=== PATIENT | female | born 1990 | race Caucasian/White ===

== ENCOUNTER 2021-11-04 18:26 | Outpatient (REF) | payer OTHER, SELFPAY ==
[2021-11-04 13:39] LABS: Abs Immature Grans 0.03 10^3/uL (0.0-0.06); Absolute Basophil Count 0.05 10^3/uL (0.0-0.2); Absolute Eosinophil Count 0.17 10^3/uL (0.0-0.7); Absolute Lymphocyte Count 1.72 10^3/uL (1.2-3.4); Absolute Monocyte Count 0.48 10^3/uL (0.1-0.8); Absolute Neutrophil Count 3.84 10^3/uL (1.2-6.7); Basophils % 0.8; Eosinophils % 2.7; HCT 42.7 % (36.0-46.0); HGB 13.9 g/dL (11.2-15.7); Immature Grans % 0.5; Lymphocytes % 27.3; MCH 29.2 pg (27.0-33.0); MCHC 32.6 % (32.0-36.0); MCV 89.7 fL (80-95); Monocytes % 7.6; Neutrophils % 61.1; Nucleated RBC 0 %; Platelet Count 306 10^3/uL (130-400); RBC 4.76 10^6/uL (3.93-5.22); RDW 12.8 % (11.7-14.6); RDW-SD 42.5 fL; WBC 6.29 10^3/uL (4.4-10.8)
[2021-11-04 14:02] LABS: ALT 28 U/L (14-59); AST 18 U/L (15-37); Albumin 4.5 g/dL (3.4-5.0); Alkaline Phosphatase 69 U/L (46-116); Anion Gap 9.8 mmol/L (3-11); BUN 15 mg/dL (7-18); Bilirubin, Total 1.7 mg/dL (0.2-1.0); CO2 28.2 mmol/L (21.0-32.0); CREATININE 0.8 mg/dL (0.55-1.02); Calcium 9.6 mg/dL (8.5-10.1); Chloride 104 mmol/L (98-107); Glucose 96 mg/dL (74-106); Potassium 3.7 mmol/L (3.5-5.1); Sodium 142 mmol/L (136-145); TSH 0.91 uIU/mL (0.36-3.74); Total Protein 8.1 g/dL (6.4-8.2)
== END 2021-11-04 18:27 | disposition home or self-care (01) ==
LOC: LBN 18:26
PROVIDERS: PCP Student in an Organized Health Care Education/Training Program; Visit Provider Surgery
DX: R11.2 Nausea with vomiting, unspecified (principal); Z80.0 Family history of malignant neoplasm of digestive organs; Z86.79 Personal history of other diseases of the circulatory system; Z98.890 Other specified postprocedural states
CPT/HCPCS: 80053; 84443; 85025

== ENCOUNTER 2021-11-18 03:55 | Outpatient (CLI) | payer OTHER, SELFPAY ==
[2021-11-18 12:33] LABS: Bilirubin, Direct 0.3 mg/dL (0.0-0.2); LDH 162 U/L (81-234)
[2021-11-18 22:31] LABS: Estradiol 183 pg/mL (See Note); Progesterone 7.8 ng/mL (See Table)
[2021-11-18 22:44] LABS: Prolactin 8.8 ng/mL (See Table)
[2021-11-18 22:46] LABS: FSH 3.1 mIU/mL (See Note)
[2021-11-19 10:16] LABS: Haptoglobin 54 mg/dL (32-197)
[2021-11-19 14:53] LABS: Antimullerian Hormone 12 ng/mL (0.58-8.1)
== END 2021-11-18 03:56 | disposition home or self-care (01) ==
LOC: LBO 03:55
PROVIDERS: Obstetrics & Gynecology; PCP Student in an Organized Health Care Education/Training Program; Visit Provider Surgery
DX: N97.9 Female infertility, unspecified (principal); N92.6 Irregular menstruation, unspecified; R17 Unspecified jaundice
CPT/HCPCS: 36415; 82248; 82670; 83001; 83010; 83520; 83615; 84144; 84146

== ENCOUNTER 2021-12-03 00:52 | Outpatient (CLI) | payer OTHER, SELFPAY ==
[2021-12-03] MEDS: Omnipaque 350 MG/ML 50 ML BTL 30 ML IJ (11:14)
--- NOTE | 2021-12-03 11:14 | DI.RAD_ITS ---
Exam(s) RF HYSTEROSALPINGOGRAM EXAM: RF HYSTEROSALPINGOGRAM CLINICAL HISTORY: infertility,N97.9 TECHNIQUE: 2D and realtime digital imaging was performed. CONTRAST MATERIAL: Water soluble contrast was administered. COMPARISON: No exams were available for comparison FINDINGS: Fluoroscopically-guided hysterosalpingogram. The cervical opening was cannulated by Dr. Weber. Reanna chris under fluoroscopic guidance, water-soluble contrast was injected in a retrograde fashion. The uterus fills normally, with no evidence of contour abnormality, filling defect, septum, stricture , mass, or bicornuate configuration. The left fallopian tube fills normal with spillage of contrast i nto the peritoneum. There is poor filling of the right fallopian tube. No spillage of contrast into the peritoneum is seen from the right tube. IMPRESSION: Poor filling of the right fallopian tube with no evidence of spillage of contrast into the peritoneum . RADIATION DOSE DELIVERED: donavan Martinez=4.14 mGy
--- NOTE | 2021-12-03 13:19 | W.PROCNOTE ---
Date of service: 12/03/21 Procedure Note Date of procedure: 12/03/21 Procedure: Hysterosalpingogram Surgeon/Proceduralist/Physician: Imelda Weber Procedure Diagnosis: Female Infertility Procedure Indications: Infertility. Normal bloodwork, 's semenanylsis pending. Sono scheduled in 2 wks. Procedure Description: The patient arrived to diagnostic imaging for HSG for infertility. She had a negative test at home. The procedure was explained and consent was signed. She was positioned in the dorsal lithotomy position on the table. A time out was performed. The speculum was placed in the vagina to expose the cervix. The cervix was clensed with betadyne. The anterior lip of the cervix was grasped with a single tooth tenaculum. The catheter was inserted through the cervix into the uterine cavity. The balloon was inflated. The speculum was then removed. When the radiologist was present the patient was repositioned. The contrast was then injected while the radiologist performed fluroscopy. The balloon was then deflated and the catheter was removed. The uterine cavity appeared normal and both tubes appeared patent with positive spill noted on the left side but was delayed. No spill noted on the right side s/p 30ml of contrast.
== END 2021-12-03 01:12 ==
PROVIDERS: PCP Student in an Organized Health Care Education/Training Program; Visit Provider Obstetrics & Gynecology
DX: N97.9 Female infertility, unspecified (principal)
CPT/HCPCS: 58340; 74740; Q9967

== ENCOUNTER 2021-12-08 17:16 | Outpatient (REF) | payer OTHER, SELFPAY ==
[2021-12-08 17:43] LABS: Source Nasal/Nares
[2021-12-09 00:27] LABS: COVID-19 PCR Negative (Negative)
== END 2021-12-08 17:17 | disposition home or self-care (01) ==
LOC: LBN 17:16
PROVIDERS: PCP Student in an Organized Health Care Education/Training Program; Visit Provider Surgery
DX: Z20.822 Contact with and (suspected) exposure to COVID-19 (principal); Z01.818 Encounter for other preprocedural examination
CPT/HCPCS: 87635

== ENCOUNTER 2021-12-10 07:10 | Day surgery (SDC) | payer OTHER, SELFPAY ==
--- NOTE | 2021-12-09 09:20 | W.PM.HP.N ---
Assessment and Plan Assessment and plan (1) Total bilirubin, elevated: Status: Acute Assessment and plan: Pilar (2) PONV (postoperative nausea and vomiting): Status: Acute (3) Family history of colon cancer requiring screening colonoscopy: Status: Acute Assessment and plan: Informed consent is obtained for the procedural (explained in simple layman's terms that?the pt and/or family could understand) explaining risks vs benefits and alternatives to the procedure and consequences if we do not do the procedure and need/rational for the procedure. Risks include but are not limited to: bleeding, infection, perforation of colon.? This would necessitate emergency surgery to repair the damage w/ possible ostomy; and other associated complications w/ the required surgery. ? Also complications of anesthesia including aspiration, NE/CVA/. ? ?I discussed with the?patient would they could expect during the procedure, post procedure and recovery time and risks.? The patient understands that they need to have a ride home after (4) Colon cancer screening: Status: Acute History of Present Illness History of Present Illness Chief Complaint: The pt. Presents today for consult of/follow up of acute wound /chronic wou Narrative: The pt. Presents today for consult of/follow up of acute wound /chronic wound care. The pt.?has been having no nausea or vomiting; no chest pain, shortness of breath or productive cough. ? Patient has been urinating without any difficulties and moving bowel w/ no straining or bleeding. No problems with diarrhea (continues to eat yogurt daily if on abx).? No fever/chills/sweats.?? Patient has no calf pain swelling, tenderness, or redness.? Patient has been sleeping at night with no problems.? Patient has been ambulating without difficulty.? Patient has been able to tolerate a regular diet.? Patient has had good relief with previously prescribed pain meds.? The pt motor/sensory/vascular status is intact without any signs of acute or chronic ischemia. GPA younger sibs all started screening early- all had polyps routinely on scopes.? he had 5 sibleings.? One in 20's to accident.? all 4 siblings have had polyp His father had CRC- age 70. had s/s before finding cancer.? Had anemia.? First scope at age 46 and had stage 4 cancer.? mother and sister both routinely have polyps.? ?MMA- breat CA in 50'2.? -no changes in bowels. -cyclic vomting as child. no blood.? no sstonstipation/dairrhea.? PSHX hernia as wisdom teeth geta- for dental extractions age 11 PONV runs marathon and will have low hr and htn ? Patient is here today for colonoscopy. I did review her lab results with her today and they are consistent with Ibrahima's She completed the prep in the resulting effluent is a clear yellow. She is not having any chest pain or shortness of breath or chest pressure. She is currently not having any abdominal pain or nausea. She has cough or fevers. She has had no changes in her medications or health status since I saw her in the office last. Review of Systems All systems reviewed & are unremarkable except as noted in HPI and below PFSH All Active Problems Female infertility (Acute) Total bilirubin, elevated (Acute) PONV (postoperative nausea and vomiting) (Acute) Family history of colon cancer requiring screening colonoscopy (Acute) MGP Dg age 45 Mother has A. polyp Colon cancer screening (Acute) Vitamin D deficiency (Acute) Anxiety (Chronic) Celexa helps. Family and personal Hx anx/depression. Managed with good insight and strong support from . Medical History Eating disorder Family history of colon cancer Maternal grandfather Dx @ 43yo, Stg 4! Mo with polyps in 30's. Recommending screening @ 30yo with 5-10 yr recall, [ ] TBD. Family history of infertility History of hypotension Low, but stable, BP. Lightheaded in summer .. Monitors hydration, occasional inc salt intake. Pedialyte helps. History of snoring Long Hx, with enlarged turbinates, sinus congestion .. Hx ENT (-). No sign of apnea; good sleep. 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 Hx LOC. Hx of tendinitis Knee, managed with self-care/home gym/exercise routine. PT PRN. Intermittent vomiting Hx cyclical vomiting as a child; nausea/migraines as teen.. Possible episodic n/v 2' fatigue, stress, hormonal changes (?) Migraine with aura and without status migrainosus, not intractable Managed with Ibuprofen .. (6-8 hr episodes) Seasonal allergies Long Hx, with enlrged turb and sinus congestion.. Antihistamines PRN. Vaso-vagal reaction Hx vaso-vagal rxn (immuniz, IV needles) .. possible assoc with N/V/GI issues (?) Surgical History H/O hernia repair (~02/1992) History of local excision of skin lesion Benign, [place] [place] Family History Maternal Grandfather Substance use disorder opioids, dcsd Colon cancer Mother Anxiety Depression Hypertension Obesity Colon polyps age 30 Sister Anxiety Depression Brother Asthma Paternal Aunt Breast cancer Maternal Grandmother Breast cancer Paternal Grandmother Cancer hodgkin lymphoma Paternal Grandfather Prostate cancer Depression Father Depression Psoriasis Social History Smoking/Tobacco Use Status: Never Smoking risk assessment performed?: Yes Alcohol Intake: current Alcohol Intake frequency: a few times a month Alcohol type: beer Drug use: Never Substance use type: does not use Adopted: No Caregiver/Support person: No Foster care: No Household members: spouse Housing: house Number of Children: 0 number of grandchildren: 0 Communication Needs: None Education Level: other Details: MD Do you need help understanding health information?: Never 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 Pets and animals: Yes (2) Pets and animals: cat(s) Sexually active: Yes Do you think of yourself as: straight/heterosexual Current gender identity: female What is your relationship status?: How often do you talk on the phone with friends or family?: three or more times per week How often do you get together with friends or relatives?: twice per week Do you belong to any clubs or organized social groups?: no Panel score (0-1 are the most socially isolated patients): 2 What type of physical activity do you participate in: weight lifting, other Details: skiing and running Duration: 30-45 minutes/day Frequency: 5-6 times per week Zulema/Mandaeism: None Special zulema needs: No Seatbelt use: always Helmet use: Yes Helmet use: always Drive intox or ride w/intox courier delivery driver: No Do you feel safe at home: Yes Do you feel safe in your relationship?: Yes Female Reproductive History Menstrual Age of Menarche: 12 Duration of menses: 6-7 days control method: none History History 0 Para Hx # Term Pregnancies Multiple births Hx # Pregnancies Ectopic pregnancies AB induced Hx Number of Living Children AB spontaneous Meds Allergies and Home Medications Allergies Allergy/AdvReac Type Severity Reaction Status Date / Time No Known Allergies Allergy Verified 12/10/21 07:34 Home Medications Medication Instructions Recorded Confirmed Type loratadine 10 mg tablet (Claritin) 10 mg PO HS 06/07/21 12/10/21 History cholecalciferol (vitamin D3) 50 50 mcg PO HS 07/01/21 12/10/21 History mcg (2,000 unit) capsule multivitamin 1 tab PO HS 07/01/21 12/10/21 History triamcinolone acetonide 55 mcg 1 spray INTRANASAL HS 07/01/21 12/10/21 History nasal spray aerosol (Nasacort) citalopram 20 mg tablet (Celexa) 20 mg PO HS 12/09/21 12/10/21 History hydroxyzine HCl 25 mg tablet 25 mg PO QID PRN 12/10/21 12/10/21 History Exam Narrative Exam Narrative: PHYSICAL EXAM GENERAL APPEARANCE: Alert, healthy appearance, oriented, in no acute distress SKIN: No rashes.? No breakdown HYDRATION: Well hydrated HEAD, EYES, EARS, NECK, THROAT: Head is normocephalic, pupils equal, round, reactive to light and accommodation, ocular movement intact, sclera clear and no jaundice. ?Dentition intact. No sore throat.? No jaw pain. NECK: Supple, Trachea midline. No JVD. LUNGS: normal respiration/nl chest excursion. ?Clear to auscultation B/l no R/R/W ?HEART: Regular rate and rhythm, EXTREMITY: No edema or cyanosis? no leg pain, redness, swelling.? ABDOMEN: non tender to palpation, no masses or distention, no hernias. Normal bowel sounds NEURO: no focal neuro deficits. ?
--- NOTE | 2021-12-09 14:29 | COLE_ITS ---
Colonoscopy Report Date of procedure: 12/10/21 Pre-op diagnosis general: + Family history of colorectal cancer in a first-degre e relative <60 Surgeon: Judit Pressley Anesthesia Type: General:No Airway Estimated blood loss (mL): 0 Pathology: none sent Complications: None Disposition: same day Prep: Miralax/Dulcolax Retraction Time: 8 mins Procedure Description: After informed consent was obtained the patient was taken to the procedure room and placed in a left decubitous position. Monitors were applied and a time out was done. The patients name, date of , procedure, allergies to medications and metal in their body was reviewed. The patient was then sedated. Once sedated and comfortable a rectal exam was done. External exam was normal. Internal exam revealed a normal sphincter tone and no palpable masses. The scope was then introduced and retrofelexed. No internal hemorrhoids were identified. The scope was then advanced to the cecum withoutdifficulty. The TI and appendiceal orifice were identified. The prep was bps 3 in all segments for a total of 9 The scope was then slowly retracted over 8 minutes back into the rectum. The colon is somewhat tortuous. there are no polyps, AVMs, or diverticula visualized today. The scope was removed and the patient was woken up and taken back to Same day surgery in stable condition. The patient tolerated the procedure well and there were no immediate complications. Follow up: The patient should follow up in 5 years unless they develop changes in bowel habits or other new gastrointestinal complaints.
--- NOTE | 2021-12-09 14:32 | PDOC.DSDIS_ITS ---
Discharge Plan Disposition Patient Disposition: HOME Condition: Good Discharge Details Reason For Visit: colon scope Attending Provider: Judit Pressley Primary Care Provider: Alaina Marie Home Meds and New Rx's Prescriptions: No Action cholecalciferol (vitamin D3) 50 mcg (2,000 unit) capsule 50 mcg PO HS 0RF multivitamin Tablet 1 tab PO HS 0RF triamcinolone acetonide [Nasacort] 55 mcg aerosol,spray 1 spray intranasal HS 0RF Rx Instructions: administer into each nostril loratadine [Claritin] 10 mg tablet 10 mg PO HS 0RF citalopram [Celexa] 20 mg tablet 20 mg PO HS 0RF hydroxyzine HCl 25 mg Tablet 25 mg PO QID PRN0RF Discharge Instructions Additional Instructions: DSU Colonoscopy Post- Op Instructions Instructions for Everyone who is given Anesthesia: For your safety, please do the following for the next twenty-four (24) hours: *Do Not operate a motor vehicle (car, truck, motorcycle, etc.) *Do Not drink alcoholic beverages or use any recreational drugs for the first 24 hours or while taking pain medications. The medications in your body may have a reaction that can be dangerous. *Do Not make any important decisions or sign any important papers. Findings: Normal Follow up: Repeat in 5 years time 1. No lifting over 20 pounds or strenuous activity for the first 24 hours after your procedure. After 24 hours there are no restrictions on your activity but you may feel fatigued for a few days. 2. After you arrive home you may have a light meal and return to your normal diet as you can tolerate it without feeling sick to your stomach. 3. You may have a bloated, gaseous feeling in your belly (abdomen) after a colonoscopy. Passing gas and belching will help. Walking or lying down on your left side with your knees flexed may relieve the discomfort. Call the office at [phone] (Office) or [phone] (Hospital) right away if you notice any of the following: a.Vomiting of blood or ?coffee ground stools?. b.Rectal bleeding 1Tbsp, blood clots or continuous bleeding. c.Severe belly (abdominal) pain. d.A hard distended belly (abdomen) and an inability to pass gas. 4. Please don?t expect to have a normal BM (bowel movement) for 2-3 days after your procedure. 5. If there are questions regarding the findings of your procedure, please contact your doctor 6. If you are unable to contact your doctor with a problem, contact the hospital at [phone]. 7. Continue all your regular medications unless directed otherwise. I understand the above instructions and have no questions. Signature of Patient or Adult Escort Name of Responsible Adult Escort Signature of Nurse Date/Time Activity:: see above Diet:: see above Discharge Orders Discharge Orders: Discharge Order (Routine); Ordered 12/09/21 Ordered By: Judit Pressley
[2021-12-10 07:26] VITALS: BP 112/70; PULSE 67; RESP 17; TEMP 36.3; O2SAT 100
--- NOTE | 2021-12-10 07:47 | ANES.PREOP_ITS ---
General Info Date of Service Date Performed: 12/10/21 Height: 5 ft 5 in Weight: 64.5 kg Body Mass Index (BMI): 23.6 Surgical Procedure: Operation Date: 12/10/21 08:20 Proposed Procedure Side Surgeon daphnie Pressley, DO Meds Allergies and Home Medications Allergies Allergy/AdvReac Type Severity Reaction Status Date / Time No Known Allergies Allergy Verified 12/10/21 07:34 Home Medication Medication Instructions Recorded loratadine 10 mg tablet (Claritin) 10 mg PO HS 06/07/21 cholecalciferol (vitamin D3) 50 50 mcg PO HS 07/01/21 mcg (2,000 unit) capsule multivitamin 1 tab PO HS 07/01/21 triamcinolone acetonide 55 mcg 1 spray INTRANASAL HS 07/01/21 nasal spray aerosol (Nasacort) citalopram 20 mg tablet (Celexa) 20 mg PO HS 12/09/21 hydroxyzine HCl 25 mg tablet 25 mg PO QID PRN 12/10/21 Current Visit Medications: Current Medications Generic Name Dose Route Start Last Admin Trade Name Freq PRN Reason Stop Dose Admin Hyoscyamine Sulfate 0.125 mg 12/09/21 14:28 Hyoscyamine 0.125 Mg Sl/Oral/Chew SL DIRECTED PRN Ringer's Solution 1,000 mls @ 80 mls/hr 12/10/21 06:00 IV 01/08/22 23:59 INFUSION ON LICENSE OF [facility] IV Miscellaneous Supplies 1 each 12/10/21 06:00 Iv Access IV 01/08/22 23:59 DIRECTED ON LICENSE OF [facility] Ondansetron HCl 4 mg 12/09/21 14:28 Ondansetron 4 Mg/2 Ml Vial IVP Q4H PRN PRN Nausea / Vomiting Sodium Chloride 0 ml 12/10/21 06:00 Normal Saline Flush 10 Ml Syr IV 01/08/22 23:59 PRN PRN Sodium Chloride 0 ml 12/10/21 06:00 Normal Saline 10 Ml Vial IJ 01/08/22 23:59 DIRECTED PRN Sterile Water 0 ml 12/10/21 06:00 Water,Injection,Sterile 10 Ml Vial IJ 01/08/22 23:59 DIRECTED PRN PFSH Active Problems Active Problems: Problem Status Onset Code Female infertility N97.9 Total bilirubin, elevated R17 PONV (postoperative nausea and vomiting) R11.2, Z98.890 Family history of colon cancer requiring screening colonoscopy Z80.0 Colon cancer screening Z12.11 Vitamin D deficiency E55.9 Anxiety F41.9 Medical History Medical History Eating disorder Family history of colon cancer Maternal grandfather Dx @ 43yo, Stg 4! Mo with polyps in 30's. Recommending screening @ 30yo with 5-10 yr recall, [ ] TBD. Family history of infertility History of hypotension Low, but stable, BP. Lightheaded in summer .. Monitors hydration, occasional inc salt intake. Pedialyte helps. History of snoring Long Hx, with enlarged turbinates, sinus congestion .. Hx ENT (-). No sign of apnea; good sleep. 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 Hx LOC. Hx of tendinitis Knee, managed with self-care/home gym/exercise routine. PT PRN. Intermittent vomiting Hx cyclical vomiting as a child; nausea/migraines as teen.. Possible episodic n/v 2' fatigue, stress, hormonal changes (?) Migraine with aura and without status migrainosus, not intractable Managed with Ibuprofen .. (6-8 hr episodes) Seasonal allergies Long Hx, with enlrged turb and sinus congestion.. Antihistamines PRN. Vaso-vagal reaction Hx vaso-vagal rxn (immuniz, IV needles) .. 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 Has Vasovagal reaction with needles. Surgical History Surgical History H/O hernia repair (~02/1992) History of local excision of skin lesion Benign, [place] [place] Tobacco Smoking/Tobacco Use Status: Never Passive smoking exposure: No Alcohol Alcohol Intake: current Alcohol intake frequency: a few times a month Alcohol type: beer Substance Use Substance use: Never Substance use type: does not use Prental History History 0 Para Hx # Term Pregnancies Multiple births Hx # Pregnancies Ectopic pregnancies AB induced Hx Number of Living Children AB spontaneous Vital Signs and Lab Results Vital Signs Most Recent Vital Signs in EMR: Most Recent Vital Signs Temp Pulse Resp BP Pulse Ox 36.3 C L 67 17 112/70 100 12/10/21 07:26 12/10/21 07:26 12/10/21 07:26 12/10/21 07:26 12/10/21 07:26 Lab Results Blood Type / Crossmatch: No Data to Display Complete Blood Count: No Data to Display Complete Metabolic Panel: No Data to Display Liver Function Panel: No Data to Display Coagulation Panel: No Data to Display Cardiac Panel: No Data to Display Arterial Blood Gas: No Data to Display Venous Blood Gas: No Data to Display Pancreas Panel: No Data to Display Thyroid Panel: No Data to Display Infectious Disease: Coronavirus (COVID-19)(PCR) Negative (Negative) 12/08/21 08:20 12/08/21 Coronavirus 2019 Source Nasal/Nares 12/08/21 08:20 12/08/21 Blood Cultures: No Data to Display Toxicology Panel: No Data to Display Panel: No Data to Display Anesthesia Assessment and Plan Anesthesia History Personal History: No History of Anesthesia Complications and PONV Family History: No Family History of Anesthesia Complications Exercise Tolerance Exercise Tolerance: Metabolic Equivalents>4 Pertinent Negatives Pertinent Negatives: No Symptoms of GERD Cardiac & Pulmonary Exam Cardiac Exam: Normal S1/S2 Heart Sounds Pulmonary Exam: Clear Bilateral Breath Sounds Implantable Cardiac Device Does patient have a Pacemaker or an ICD?: No Airway Exam Known Difficult Airway: No Mallampati Class: 1 Mouth Opening: Normal (> 3cm) Thyromental Distance: Greater than 3 cm Neck Range of Motion: Full ROM Neck Circumference: Normal Teeth Condition: Normal Dentition ASA Classification ASA Score: ASA 1 Emergency Case?: No NPO Status NPO Status: NPO Clears >2 hours, Solids >8 hours Status Status: Not Per Patient Anesthesia Plan Resuscitation Status: Full Code Anesthesia Technique: General Anesthesia Airway Planned: Natural Airway Monitors Used: Standard Monitors
[2021-12-10 07:54] VITALS: BMI 23.6
[2021-12-10] MEDS: Lactated Ringers 1,000 ML 80 ML IV (08:14)
[2021-12-10 08:59] VITALS: BP 100/65; PULSE 57; RESP 17; TEMP 36.7; O2SAT 99
[2021-12-10 09:30] VITALS: BP 102/60; PULSE 57; RESP 18; TEMP 36.1; O2SAT 100
--- NOTE | 2021-12-13 12:49 | W.ANESPOSTOP ---
Postoperative Evaluation Date, Time and Location Date Performed: 12/13/21 Time Performed: 12:49 Patient Location: Other Vital Signs Most Recent Imported Vital Signs: Most Recent Vital Signs Temp Pulse Resp BP Pulse Ox 36.1 C L 57 L 18 102/60 100 12/10/21 09:30 12/10/21 09:30 12/10/21 09:30 12/10/21 09:30 12/10/21 09:30 Pain Score Most Recent Pain Score: Most Recent Pain Score Pain Level 1 12/10/21 09:30 Assessment Mental Status: Awake (Alert & Oriented to Patient Baseline) Airway and Respiratory Function: Patent airway with normal (patient baseline) respiratory exam Cardiovascular Function: Hemodynamically Stable Hydration Status: Adequately Hydrated Nausea & Vomiting: No Nausea or Vomiting Pain: Pt. Denies Any Pain Peripheral Nerve Block: Patient did not receive a nerve block Postoperative Comments:: Discharged home without apparent complications.
== END 2021-12-10 09:45 | disposition home or self-care (01) ==
PROVIDERS: PCP Student in an Organized Health Care Education/Training Program; Visit Provider Surgery
PROC: 0DJD8ZZ Inspection of Lower Intestinal Tract, Via Natural or Artificial Opening Endoscopic (ICD-10-PCS; CPT 45378; principal; 2021-12-10 08:15)
DX: Z12.11 Encounter for screening for malignant neoplasm of colon (principal); Z80.0 Family history of malignant neoplasm of digestive organs; E55.9 Vitamin D deficiency, unspecified
CPT/HCPCS: 45378

== ENCOUNTER 2021-12-17 13:14 | Outpatient (CLI) | payer OTHER, SELFPAY ==
[2021-12-17 12:50] LABS: HCG Quant, Pregnancy < 1 mIU/mL (1-3)
== END 2021-12-17 13:15 | disposition home or self-care (01) ==
PROVIDERS: Obstetrics & Gynecology; PCP Student in an Organized Health Care Education/Training Program; Visit Provider Student in an Organized Health Care Education/Training Program
DX: N91.0 Primary amenorrhea (principal)
CPT/HCPCS: 36415; 84702

== ENCOUNTER 2022-03-17 02:35 | Outpatient (CLI) | payer OTHER, SELFPAY ==
[2022-03-17 15:02] LABS: Source Nasal/Nares
[2022-03-17 15:03] LABS: Abs Immature Grans 0.16 10^3/uL (0.0-0.06); Absolute Basophil Count 0.07 10^3/uL (0.0-0.2); Absolute Lymphocyte Count 1.77 10^3/uL (1.2-3.4); Basophils % 0.5; Eosinophils % 1.1; HCT 37.7 % (36.0-46.0); HGB 12.8 g/dL (11.2-15.7); Immature Grans % 1.1; Lymphocytes % 12.6; MCH 29.2 pg (27.0-33.0); MCV 86 fL (80-95); MPV 9.6 fL (8.0-11.0); Monocytes % 6.6; Neutrophils % 78.1; Platelet Count 247 10^3/uL (130-400); RBC 4.38 10^6/uL (3.93-5.22); RDW 12.6 % (11.7-14.6); RDW-SD 39.8 fL; WBC 14.02 10^3/uL (4.4-10.8)
[2022-03-17 15:09] LABS: Absolute Eosinophil Count 0.15 10^3/uL (0.0-0.7); Absolute Monocyte Count 0.93 10^3/uL (0.1-0.8); Absolute Neutrophil Count 10.95 10^3/uL (1.2-6.7)
[2022-03-17 15:54] LABS: COVID-19 PCR Negative (Negative)
== END 2022-03-17 02:36 | disposition home or self-care (01) ==
LOC: LBO 02:35
PROVIDERS: PCP Student in an Organized Health Care Education/Training Program; Visit Provider Advanced Practice Midwife
DX: O02.1 Missed abortion (principal); Z20.822 Contact with and (suspected) exposure to COVID-19; Z01.818 Encounter for other preprocedural examination; Z01.812 Encounter for preprocedural laboratory examination
CPT/HCPCS: 86850; 86900; 86901; 87635; 85025

== ENCOUNTER 2022-03-17 17:09 | Outpatient (REF) | payer OTHER, SELFPAY | END 2022-03-17 17:10 | disposition home or self-care (01) | LOC: LBN 17:09 | PROVIDERS: PCP Student in an Organized Health Care Education/Training Program; Visit Provider Advanced Practice Midwife ==

== ENCOUNTER 2022-03-18 11:54 | Day surgery (SDC) | payer OTHER, SELFPAY ==
--- NOTE | 2022-03-17 16:50 | HPE_ITS ---
Date of service: 03/17/22 Time of Service: 16:50 Assessment and Plan Assessment and plan (1) Missed : Status: Acute Assessment and plan: Patient has an intrauterine demise at 11 weeks and 2 days by dates, approximately 10 weeks by ultrasound. After all options were given, patient opted for dilation and curettage for completion. The risk benefits and alternatives the procedure were explained to the patient in full informed consent was obtained. She understands the risk of infection, bleeding, injury to surrounding organs, risk of anesthesia. Full informed consent was obtained. She will have baseline laboratory studies including CBC, type and screen, COVID screening prior to her procedure which is scheduled for 03/18/2022. All questions were answered. History of Present Illness History of Present Illness Chief Complaint: Missed Narrative: Patient is a 32-year-old female primigravida who presented to women's wellness for her initial OB visit today. She had had previous numerous ultrasounds early in for viability. On examination today, heart tones could not be appreciated and ultrasound confirmed a nonviable intrauterine that measured approximately 10 weeks. Patient and her were able to process this news and opted for completion dilation and curettage with suction. PFSH All Active Problems (Updated 03/17/22 @ 16:53 by Lucía Mosqueda DO) Missed (Acute) Gilbert syndrome (Acute) (Acute) Missed menses (Acute) Delayed menses (Acute) Normal colonoscopy (Acute ~12/10/21) Female infertility (Acute) Total bilirubin, elevated (Acute) PONV (postoperative nausea and vomiting) (Acute) Family history of colon cancer requiring screening colonoscopy (Acute) MGP Dg age 45 Mother has A. polyp CE- 12/24 normal Repeat 2026 Colon cancer screening (Acute) Vitamin D deficiency (Acute) Anxiety (Chronic) Celexa helps. Family and personal Hx anx/depression. Managed with good insight and strong support from . Medical History Eating disorder Family history of colon cancer Maternal grandfather Dx @ 43yo, Stg 4! Mo with polyps in 30's. Recommending screening @ 30yo with 5-10 yr recall, [ ] TBD. Family history of infertility History of hypotension Low, but stable, BP. Lightheaded in summer .. Monitors hydration, occasional inc salt intake. Pedialyte helps. History of snoring Long Hx, with enlarged turbinates, sinus congestion .. Hx ENT (-). No sign of apnea; good sleep. 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 Hx LOC. Hx of tendinitis Knee, managed with self-care/home gym/exercise routine. PT PRN. Intermittent vomiting Hx cyclical vomiting as a child; nausea/migraines as teen.. Possible episodic n/v 2' fatigue, stress, hormonal changes (?) Migraine with aura and without status migrainosus, not intractable Managed with Ibuprofen .. (6-8 hr episodes) Seasonal allergies Long Hx, with enlrged turb and sinus congestion.. Antihistamines PRN. Vaso-vagal reaction Hx vaso-vagal rxn (immuniz, IV needles) .. possible assoc with N/V/GI issues (?) Surgical History H/O hernia repair (~02/1992) History of colonoscopy (~12/10/21) History of local excision of skin lesion Benign, follows with Derm ([facility]). Family History Maternal Grandfather Substance use disorder opioids, dcsd Colon cancer Mother Anxiety Depression Hypertension Obesity Colon polyps age 30 Sister Anxiety Depression Brother Asthma Paternal Aunt Breast cancer Maternal Grandmother Breast cancer Paternal Grandmother Cancer hodgkin lymphoma Paternal Grandfather Prostate cancer Depression Father Depression Psoriasis Social History Smoking/Tobacco Use Status: Never Smoking risk assessment performed?: Yes Alcohol Intake: current Alcohol Intake frequency: a few times a month Alcohol type: beer Drug use: Never Substance use type: does not use Adopted: No Caregiver/Support person: No Foster care: No Household members: spouse Housing: house Number of Children: 0 number of grandchildren: 0 Communication Needs: None Education Level: other Details: MD Do you need help understanding health information?: Never 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 Pets and animals: Yes (2) Pets and animals: cat(s) Sexually active: Yes Do you think of yourself as: straight/heterosexual Current gender identity: female What is your relationship status?: How often do you talk on the phone with friends or family?: three or more times per week How often do you get together with friends or relatives?: twice per week Do you belong to any clubs or organized social groups?: no Panel score (0-1 are the most socially isolated patients): 2 What type of physical activity do you participate in: weight lifting, other Details: skiing and running Duration: 30-45 minutes/day Frequency: 5-6 times per week Zulema/Moravian: None Special zulema needs: No Seatbelt use: always Helmet use: Yes Helmet use: always Drive intox or ride w/intox day haul or farm 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 driver: No Do you feel safe at home: Yes Do you feel safe in your relationship?: Yes Female Reproductive History Menstrual Age of Menarche: 12 Duration of menses: 6-7 days control method: none History History 1 Para 0 Hx # Term Pregnancies Multiple births Hx # Pregnancies Ectopic pregnancies AB induced Hx Number of Living Children AB spontaneous Meds Allergies and Home Medications Allergies Allergy/AdvReac Type Severity Reaction Status Date / Time No Known Allergies Allergy Verified 03/17/22 15:29 Home Medications Medication Instructions Recorded Confirmed Type loratadine 10 mg tablet (Claritin) 10 mg PO HS 06/07/21 03/17/22 History cholecalciferol (vitamin D3) 50 50 mcg PO HS 07/01/21 03/17/22 History mcg (2,000 unit) capsule multivitamin 1 tab PO HS 07/01/21 03/17/22 History triamcinolone acetonide 55 mcg 1 spray intranasal HS 07/01/21 03/17/22 History nasal spray aerosol (Nasacort) citalopram 20 mg tablet (Celexa) 20 mg PO HS 12/09/21 03/17/22 History hydroxyzine HCl 25 mg tablet 25 mg PO QID PRN 12/10/21 03/17/22 History metoclopramide HCl 5 mg tablet 5 mg PO QACHS #20 tabs 02/24/22 03/17/22 Rx (Reglan) Exam Narrative Exam Narrative: Patient alert and oriented and in the appropriate amount of distress due to her diagnosis and recent loss Const Nutritional Appearance: average body habitus and well nourished Orientation: alert and oriented x3 HENMT Head: normal to inspection Eyes General: appearance normal, both eyes and all related structures Neck Neck: normal visual inspection and supple Resp Effort & Inspection: normal respiratory effort and no cough Auscultation: clear to auscultation bilaterally Cardio Rate: regular rate Rhythm: regular rhythm Heart Sounds: S1 normal and S2 normal Neuro General: patient alert and patient oriented x3 Extrem General: normal to inspection
[2022-03-18] VITALS (9 sets, daily range): BP systolic 78–113; BP diastolic 40–70; PULSE 54–88; RESP 13–18; TEMP 36.5–36.8; O2SAT 96–99; BMI 23.8
[2022-03-18] MEDS: Normal Saline Flush 10 ML SYR IV (08:20)
--- NOTE | 2022-03-18 12:44 | ANES.PREOP_ITS ---
General Info Date of Service Date Performed: 03/18/22 Height: 5 ft 5 in Weight: 65.034 kg Body Mass Index (BMI): 23.8 Surgical Procedure: Operation Date: 03/18/22 13:25 Proposed Procedure Side Surgeon p D&C Suction Completion Lucía Mosqueda DO Meds Allergies and Home Medications Allergies Allergy/AdvReac Type Severity Reaction Status Date / Time No Known Allergies Allergy Verified 03/18/22 12:48 Home Medication Medication Instructions Recorded loratadine 10 mg tablet (Claritin) 10 mg PO HS 06/07/21 cholecalciferol (vitamin D3) 50 50 mcg PO HS 07/01/21 mcg (2,000 unit) capsule multivitamin 1 tab PO HS 07/01/21 triamcinolone acetonide 55 mcg 1 spray intranasal HS 07/01/21 nasal spray aerosol (Nasacort) hydroxyzine HCl 25 mg tablet 25 mg PO QID PRN 12/10/21 citalopram 20 mg tablet (Celexa) 10 mg PO HS 03/17/22 metoclopramide HCl 5 mg tablet 5 mg PO QACHS PRN 03/18/22 (Reglan) Current Visit Medications: Current Medications Generic Name Dose Route Start Last Admin Trade Name Freq PRN Reason Stop Dose Admin Ringer's Solution 1,000 mls @ 125 mls/hr 03/18/22 06:00 IV 04/03/22 23:59 INFUSION BEVERLY Doxycycline Hyclate 100 mg/ 100 mls @ 100 mls/hr 03/18/22 06:00 Sodium Chloride IVPB 03/18/22 16:00 PREOP BEVERLY IV Miscellaneous Supplies 1 each 03/18/22 06:00 Iv Access IV 04/03/22 23:59 DIRECTED BEVERLY Sodium Chloride 0 ml 03/18/22 06:00 Normal Saline Flush 10 Ml Syr IV 04/03/22 23:59 PRN PRN Sodium Chloride 0 ml 03/18/22 06:00 Normal Saline 10 Ml Vial IJ 04/03/22 23:59 DIRECTED PRN Sterile Water 0 ml 03/18/22 06:00 Water,Injection,Sterile 10 Ml Vial IJ 04/03/22 23:59 DIRECTED PRN PFSH Active Problems Active Problems: Problem Status Onset Code Missed O02.1 Gilbert syndrome E80.4 Z34.90 Missed menses N92.6 Delayed menses N91.0 Normal colonoscopy ~12/10/21 Female infertility N97.9 Total bilirubin, elevated R17 PONV (postoperative nausea and vomiting) R11.2, Z98.890 Family history of colon cancer requiring screening colonoscopy Z80.0 Colon cancer screening Z12.11 Vitamin D deficiency E55.9 Anxiety F41.9 Medical History Medical History Eating disorder Family history of colon cancer Maternal grandfather Dx @ 43yo, Stg 4! Mo with polyps in 30's. Recommending screening @ 30yo with 5-10 yr recall, [ ] TBD. Family history of infertility History of hypotension Low, but stable, BP. Lightheaded in summer .. Monitors hydration, occasional inc salt intake. Pedialyte helps. History of snoring Long Hx, with enlarged turbinates, sinus congestion .. Hx ENT (-). No sign of apnea; good sleep. 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 Hx LOC. Hx of tendinitis Knee, managed with self-care/home gym/exercise routine. PT PRN. Intermittent vomiting Hx cyclical vomiting as a child; nausea/migraines as teen.. Possible episodic n/v 2' fatigue, stress, hormonal changes (?) Migraine with aura and without status migrainosus, not intractable Managed with Ibuprofen .. (6-8 hr episodes) Seasonal allergies Long Hx, with enlrged turb and sinus congestion.. Antihistamines PRN. Vaso-vagal reaction Hx vaso-vagal rxn (immuniz, IV needles) .. 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 Has Vasovagal reaction with needles. Surgical History Surgical History H/O hernia repair (~02/1992) History of colonoscopy (~12/10/21) History of local excision of skin lesion Benign, follows with D[place] Tobacco Smoking/Tobacco Use Status: Never Passive smoking exposure: No Alcohol Alcohol Intake: current Alcohol intake frequency: a few times a month Alcohol type: beer Substance Use Substance use: Never Substance use type: does not use Prental History History 1 Para 0 Hx # Term Pregnancies Multiple births Hx # Pregnancies Ectopic pregnancies AB induced Hx Number of Living Children AB spontaneous Vital Signs and Lab Results Lab Results Blood Type / Crossmatch: Patient ABO/Rh O Positive 03/17/22 Antibody Screen NEGATIVE 03/17/22 Complete Blood Count: White Blood Count 14.02 10^3/uL (4.4-10.8) H 03/17/22 14:50 Red Blood Count 4.38 10^6/uL (3.93-5.22) 03/17/22 14:50 Hemoglobin 12.8 g/dL (11.2-15.7) 03/17/22 14:50 Hematocrit 37.7 % (36.0-46.0) 03/17/22 14:50 Platelet Count 247 10^3/uL (130-400) 03/17/22 14:50 Complete Metabolic Panel: No Data to Display Liver Function Panel: No Data to Display Coagulation Panel: No Data to Display Cardiac Panel: No Data to Display Arterial Blood Gas: No Data to Display Venous Blood Gas: No Data to Display Pancreas Panel: No Data to Display Thyroid Panel: No Data to Display Infectious Disease: Coronavirus (COVID-19)(PCR) Negative (Negative) 03/17/22 14:36 Coronavirus 2019 Source Nasal/Nares 03/17/22 14:36 Blood Cultures: No Data to Display Toxicology Panel: No Data to Display Panel: No Data to Display Anesthesia Assessment and Plan Anesthesia History Personal History: PONV Family History: No Family History of Anesthesia Complications Exercise Tolerance Exercise Tolerance: Metabolic Equivalents>4 Pertinent Negatives Pertinent Negatives: No Symptoms of GERD, No Major Cardiovascular Symptoms or Complaints and No Major Pulmonary Symptoms or Complaints Cardiac & Pulmonary Exam Cardiac Exam: Normal S1/S2 Heart Sounds Pulmonary Exam: Clear Bilateral Breath Sounds Implantable Cardiac Device Does patient have a Pacemaker or an ICD?: No Airway Exam Known Difficult Airway: No Mallampati Class: 1 Mouth Opening: Normal (> 3cm) Thyromental Distance: Greater than 3 cm Neck Range of Motion: Full ROM Neck Circumference: Normal Teeth Condition: Normal Dentition ASA Classification ASA Score: ASA 2 Emergency Case?: No NPO Status NPO Status: NPO Clears >2 hours, Solids >8 hours Status Status: Not Relevant due to Medical History Anesthesia Plan Resuscitation Status: Full Code Anesthesia Technique: General Anesthesia Airway Planned: LMA Monitors Used: Standard Monitors
[2022-03-18] MEDS: Lactated Ringers 1,000 ML 125 ML IV (13:11)
[2022-03-18] MEDS: DOXYCYCLINE 100 MG in Normal Saline 100 ML IVPB (13:15)
--- NOTE | 2022-03-18 13:41 | POCSPONT_PTH ---
PATIENT: Sana Chamberlain LOC: [facility] U#:[id number] AGE/SX: 32/F ROOM: RE03/18/[address]: Lucía Mosqueda DO : 1990 BED: DIS: 03/18/2022 SPEC #: [id number] RECD: 03/18/22 16:35 STATUS: AARON REQ #: [id number] HUGH: 03/18/22 13:[address]: Lucía Mosqueda DEPT: Surgical Specimen RECD BY: Torri Portillo ENTERED: 03/18/22 16:37 SP TYPE: ZENA ANGEOL DR: Alaina Marie DO Tissues: 1 - ,SPONTANEOUS CHROMOSOME ANALYSIS PROFILE Procedures: GROSS AND MICRO LEVEL 4 CHROMOSOME ANALYSIS 15-20 CELLS CHROMOSOME ANALYSIS TISSUE CULTURE Comments: [id number] (CYTOGENETICS [id number])
--- NOTE | 2022-03-18 13:53 | W.PM.OP ---
Date of service: 03/18/22 Time of Service: 13:53 Operative Note Operative Note DATE OF PROCEDURE: 03/18/22 PRE-OP DIAGNOSIS: Missed at 11 weeks and 2 days POST-OP DIAGNOSIS: same PROCEDURE: Dilation and curettage with suction SURGEON: Lucía Mosqueda Refer to Anesthesia Record ESTIMATED BLOOD LOSS: 100 PATHOLOGY: other (1. Products of conception for exam 2. Products of conception for karyotype) COMPLICATIONS: None Patient was transported to: PACU Patient's condition: stable Indications: Missed at 11 weeks and 2 days Findings: Moderate products of conception Procedure Description: Patient is a 32-year-old primigravida female who is at 11 weeks and 2 days by last menstrual period. She had multiple confirmatory ultrasounds throughout the course of the early part of her . She was seen yesterday in women's wellness for her OB intake visit and no heart tones were appreciated. Pelvic ultrasound in a transabdominal fashion confirmed an intrauterine demise at approximately 10 weeks. Risks benefits and alternatives of watchful waiting versus medical completion versus surgical completion of her miscarriage well explained to the patient and she desired a surgical completion with dilation and curettage with suction. Full informed consent was obtained. Patient taken the operating suite with an IV running where she is placed in dorsal supine position. Anesthesia administered via LMA. At this point she was placed in the dorsal lithotomy position in yellowfin stirrups and prepped and draped in the usual sterile fashion. Her bladder was drained for approximately 50 cc of clear yellow urine. Exam under anesthesia revealed a uterus that was approximately 8 to 10 weeks size and globular. Cervix was closed. Speculum was then inserted and cervical os dilated to the point that a Spanish curved suction curette could be passed with ease. With a maximum pressure of 55 mmHg with suction the entire cavity was emptied of its contents. A sharp curettage was performed gently to ensure completion of removal of all products. A second pass with the suction curette was performed for scant tissue. At this point single-tooth tenaculum and speculum were removed from the vaginal vault. Tenaculum sites were hemostatic. Exam under anesthesia revealed a uterus that was small, midline, mobile, approximately 6 to 8 weeks size. Patient was returned to the dorsal supine position and woke from anesthesia with ease. She was taken to the postanesthesia care unit in stable condition. Findings: Moderate products of conception EBL: 100 mL Fluids: Crystalloid per anesthesia Pathology: 1. Products of conception for examination 2. Products of conception for karyotype.
[2022-03-18] MEDS: LORazepam 2 MG/ML VIAL 0.5 MG IVP ×2 (14:34→14:44)
--- NOTE | 2022-03-18 16:00 | W.ANESPOSTOP ---
Postoperative Evaluation Date, Time and Location Date Performed: 03/18/22 Time Performed: 15:20 Patient Location: Day Surgery Unit Vital Signs Most Recent Imported Vital Signs: Most Recent Vital Signs Temp Pulse Resp BP Pulse Ox 36.5 C 65 15 103/64 99 03/18/22 15:20 03/18/22 15:20 03/18/22 15:20 03/18/22 15:20 03/18/22 15:20 Pain Score Most Recent Pain Score: Most Recent Pain Score Pain Level 2 03/18/22 15:20 Assessment Mental Status: Awake (Alert & Oriented to Patient Baseline) Airway and Respiratory Function: Patent airway with normal (patient baseline) respiratory exam Cardiovascular Function: Hemodynamically Stable Hydration Status: Adequately Hydrated Nausea & Vomiting: No Nausea or Vomiting Pain: Pain is tolerable per patient Peripheral Nerve Block: Patient did not receive a nerve block Postoperative Comments:: Reported still feeling a little lightheaded. denied N/V. Educated on how to contact anesthesia provider if she had any questions. Patient appropriate to discharge. Family member was at bedside for discussion.
== END 2022-03-18 11:55 | disposition home or self-care (01) ==
PROVIDERS: PCP Student in an Organized Health Care Education/Training Program; Visit Provider Obstetrics & Gynecology
PROC: (CPT 59841; principal; 2022-03-18 13:15)
DX: O02.1 Missed abortion; Z3A.11 11 weeks gestation of pregnancy; O99.281 Endocrine, nutritional and metabolic diseases complicating pregnancy, first trimester; Z80.0 Family history of malignant neoplasm of digestive organs; E80.4 Gilbert syndrome
CPT/HCPCS: 59820; 88305; 88233; 88262; J1100; J2060; J2250; J2405; J2704

== ENCOUNTER 2022-06-02 03:13 | Emergency (ER) | payer OTHER, SELFPAY ==
[2022-06-02 03:17] VITALS: BP 127/77; PULSE 78; RESP 18; TEMP 36.6; O2SAT 100
--- NOTE | 2022-06-02 03:23 | W.ED.GENAD ---
Discharge Plan Disposition Patient Disposition: HOME Condition: Good Discharge Details Clinical Impression: Abdominal pain Primary Care Provider: Alaina Marie ED Provider: Andrea Berger Meds and New Rx's Prescriptions: Continued cholecalciferol (vitamin D3) 50 mcg (2,000 unit) capsule 50 mcg PO HS multivitamin Tablet 1 tab PO HS triamcinolone acetonide [Nasacort] 55 mcg aerosol,spray 1 spray intranasal HS Rx Instructions: administer into each nostril citalopram [Celexa] 20 mg tablet 20 mg PO HS Qty: 60 3RF loratadine [Claritin] 10 mg tablet 10 mg PO HS PRN hydroxyzine HCl 25 mg Tablet 25 mg PO QID PRN ibuprofen 800 mg tablet 800 mg PO Q8H Qty: 30 1RF Rx Instructions: Dilation curettage with suction for missed 03/18/2022 Discharge Instructions Instructions: Abdominal Pain (ED) Additional Instructions: Your vital signs, exam, laboratory studies are all reassuring. At this time it is unclear what is causing your abdominal pain. Follow-up with primary care or with ACCOUNTING MACHINE MECHANIC over the next day or 2 if the pain persists. Return to ED if the pain becomes significantly worse, you develop fever, vomiting, bloody diarrhea. Medical Decision Making Patient presenting with abdominal pain which woke her up early this morning and has persisted. There were no associated GI symptoms and no fever. Pain is not really pelvic in nature. She has no urinary symptoms. She has some tenderness without guarding or rebound in the right periumbilical area but not over McBurney's point. Will obtain labs, urine, test. Patient is not . Urinalysis is negative for signs of infection. White count is normal with normal differential. Liver function, kidney function, electrolytes, lipase are all normal. At this point it is not completely clear as to the cause of her pain. Does not appear to be a surgical problem currently although early appendicitis cannot be completely ruled out. Discussed imaging and will hold off for now. Discussed possibility of this being ACQUISITION MARKETING MANAGER no does not seem to be pelvic in nature and is more abdominal. Will observe at home follow-up with primary care or ACCOUNTING MACHINE MECHANIC if not improving or return to ED if significantly worsening pain, fever, vomiting, bloody diarrhea, other changes. Medical Records Medical records reviewed: Yes I reviewed the patient's medical records. Lab Data Lab results reviewed: Yes I reviewed the patient's lab results. HPI General Mode of arrival: ambulatory. Date/Time Provider Initiated Documentation: 06/02/22 03:17. Limitations to Documentation: no limitations. Information obtained by: patient, RN notes reviewed and old records reviewed. HPI Narrative: Patient presents to the ED with periumbilical abdominal pain. She first noticed pain previous night and it resolved so that she felt fine during the day yesterday. She had no pain when she went to bed last night. She developed pain that woke her up from sleep early this morning. It is persistent but seems to wax and wane in intensity. It is probably more right sided than left and it also seems to radiate into the lower back. She has no associated fever, nausea, vomiting, diarrhea. He has no urinary symptoms. She is status post a miscarriage over the summer with resulting D&C. She just got her first menstrual cycle 3 weeks ago since the miscarriage and is still having some bleeding at this time. Her pain does not seem to be pelvic in nature. She had bilateral hernia repairs as an but no other abdominal surgeries. Related Data Home Medications Medication Instructions Recorded Confirmed loratadine 10 mg tablet (Claritin) 10 mg PO HS PRN 06/07/21 06/02/22 cholecalciferol (vitamin D3) 50 50 mcg PO HS 07/01/21 06/02/22 mcg (2,000 unit) capsule multivitamin 1 tab PO HS 07/01/21 06/02/22 triamcinolone acetonide 55 mcg 1 spray intranasal HS 07/01/21 06/02/22 nasal spray aerosol (Nasacort) hydroxyzine HCl 25 mg tablet 25 mg PO QID PRN 12/10/21 06/02/22 ibuprofen 800 mg tablet 800 mg PO Q8H #30 tabs 03/18/22 06/02/22 citalopram 20 mg tablet (Celexa) 20 mg PO HS #60 tabs 03/28/22 06/02/22 Previous Rx's Medication Instructions Recorded ibuprofen 800 mg tablet 800 mg PO Q8H #30 tabs 03/18/22 citalopram 20 mg tablet (Celexa) 20 mg PO HS #60 tabs 03/28/22 Allergies Allergy/AdvReac Type Severity Reaction Status Date / Time No Known Allergies Allergy Verified 06/02/22 03:20 General Stated Complaint: Abd Prob PERICO: 3 Review of Systems Narrative: 01/15 Review of Systems completed and is negative except as stated above in HPI (Systems reviewed: Const, Resp, CV, GI, Neuro) PFSH All Active Problems Abdominal pain (Acute) Other specified counseling (Acute) Status post dilation and curettage (Acute) Anxiety (Chronic) Celexa helps. Family and personal Hx anx/depression. Managed with good insight and strong support from . Vitamin D deficiency (Acute) Colon cancer screening (Acute) Family history of colon cancer requiring screening colonoscopy (Acute) MGP Dg age 45 Mother has A. polyp CE- 12/24 normal Repeat 2026 PONV (postoperative nausea and vomiting) (Acute) Total bilirubin, elevated (Acute) Normal colonoscopy (Acute ~12/10/21) Gilbert syndrome (Acute) Medical History Eating disorder Family history of breast cancer mother Family history of colon cancer Maternal grandfather Dx @ 43yo, Stg 4! Mo with polyps in 30's. Recommending screening @ 30yo with 5-10 yr recall, [ ] TBD. Family history of infertility Female infertility History of hypotension Low, but stable, BP. Lightheaded in summer .. Monitors hydration, occasional inc salt intake. Pedialyte helps. History of snoring Long Hx, with enlarged turbinates, sinus congestion .. Hx ENT (-). No sign of apnea; good sleep. 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 Hx LOC. Hx of tendinitis Knee, managed with self-care/home gym/exercise routine. PT PRN. Intermittent vomiting Hx cyclical vomiting as a child; nausea/migraines as teen.. Possible episodic n/v 2' fatigue, stress, hormonal changes (?) Migraine with aura and without status migrainosus, not intractable Managed with Ibuprofen .. (6-8 hr episodes) Seasonal allergies Long Hx, with enlrged turb and sinus congestion.. Antihistamines PRN. Vaso-vagal reaction Hx vaso-vagal rxn (immuniz, IV needles) .. possible assoc with N/V/GI issues (?) Surgical History H/O hernia repair (~02/1992) History of colonoscopy (~12/10/21) History of local excision of skin lesion Benign, follows with Derm ([facility] [place] Family History Maternal Grandfather Substance use disorder opioids, dcsd Colon cancer Mother Anxiety Depression Hypertension Obesity Colon polyps age 30 Sister Anxiety Depression Brother Asthma Paternal Aunt Breast cancer Maternal Grandmother Breast cancer Paternal Grandmother Cancer hodgkin lymphoma Paternal Grandfather Prostate cancer Depression Father Depression Psoriasis Social History Smoking/Tobacco Use Status: Never Smoking risk assessment performed?: Yes Alcohol Intake: current Alcohol Intake frequency: a few times a month Alcohol type: beer Drug use: Never Substance use type: does not use Adopted: No Caregiver/Support person: No Foster care: No Household members: spouse Housing: house Number of Children: 0 number of grandchildren: 0 Communication Needs: None Education Level: other Details: MD Do you need help understanding health information?: Never 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 Pets and animals: Yes (2) Pets and animals: cat(s) Sexually active: Yes Do you think of yourself as: straight/heterosexual Current gender identity: female What is your relationship status?: How often do you talk on the phone with friends or family?: three or more times per week How often do you get together with friends or relatives?: twice per week Do you belong to any clubs or organized social groups?: no Panel score (0-1 are the most socially isolated patients): 2 What type of physical activity do you participate in: weight lifting, other Details: skiing and running Duration: 30-45 minutes/day Frequency: 5-6 times per week Zulema/Methodist: None Special zulema needs: No Seatbelt use: always Helmet use: Yes Helmet use: always Drive intox or ride w/intox personal driver: No Do you feel safe at home: Yes Do you feel safe in your relationship?: Yes Female Reproductive History Menstrual Age of Menarche: 12 Duration of menses: 6-7 days control method: none History History 1 Para 0 Hx # Term Pregnancies Multiple births Hx # Pregnancies Ectopic pregnancies AB induced Hx Number of Living Children AB spontaneous Exam Narrative Exam Narrative: Const: WDWN female in NAD. HEENT: NC/AT. Normal facial exam. Eyes: Normal conjunctiva and sclera. Neck: Supple. Trachea midline. Lungs: Normal respiratory effort. Lungs are clear. Cor: RRR without murmur/gallop. Good radial pulses. GI: Soft and ND. Some tenderness to palpation in the right periumbilical area. No guarding or rebound. No tenderness over McBurney's point. Pelvic: Deferred. Back: No CVAT Neuro: A+O x 3. Normal speech, mentation, gait. Cranial nerves II - XII grossly intact. No gross motor or sensory deficit. Ext: No C/C/E. Skin: Warm and dry without rash. Course Vital Signs Vital signs: Vital Signs Temperature 97.9 F 06/02/22 03:17 Pulse 78 06/02/22 03:17 Respiratory Rate 18 06/02/22 03:17 Blood Pressure 127/77 06/02/22 03:17 Pulse Oximetry 100 06/02/22 03:17 Temperature 97.9 F 06/02/22 03:17 Pulse 78 06/02/22 03:17 Respiratory Rate 18 06/02/22 03:17 Blood Pressure 127/77 06/02/22 03:17 Pulse Oximetry 100 06/02/22 03:17 Pain Level 7 06/02/22 03:17
[2022-06-02 03:49] LABS: Abs Immature Grans 0.07 10^3/uL (0.0-0.06); Absolute Basophil Count 0.07 10^3/uL (0.0-0.2); Absolute Eosinophil Count 0.22 10^3/uL (0.0-0.7); Absolute Lymphocyte Count 2.39 10^3/uL (1.2-3.4); Absolute Monocyte Count 0.63 10^3/uL (0.1-0.8); Absolute Neutrophil Count 6.03 10^3/uL (1.2-6.7); Basophils % 0.7; Eosinophils % 2.3; HCT 39.3 % (36.0-46.0); HGB 12.8 g/dL (11.2-15.7); Immature Grans % 0.7; Lymphocytes % 25.4; MCH 29.2 pg (27.0-33.0); MCHC 32.6 % (32.0-36.0); MCV 90 fL (80-95); MPV 9.1 fL (8.0-11.0); Monocytes % 6.7; Neutrophils % 64.2; Platelet Count 313 10^3/uL (130-400); RBC 4.39 10^6/uL (3.93-5.22); RDW 12.6 % (11.7-14.6); RDW-SD 41.3 fL; WBC 9.41 10^3/uL (4.4-10.8)
[2022-06-02 03:55] LABS: Bilirubin Negative (Negative); Blood Small (Negative); Clarity Clear (Clear); Glucose Negative (Negative); Ketones Negative (Negative); Leukocyte Esterase Negative (Negative); Nitrite Negative (Negative); Specific Gravity 1.015 (1.005-1.025); Urobilinogen 0.2 EU/dL (Up TO 0.2)
[2022-06-02 04:02] LABS: Bacteria Negative HPF (Negative); C & S Indicated? No; Crystals Negative HPF (Negative); Epithelial Cells Negative HPF (Negative); Mucus Negative (Negative); RBC 0-2 HPF (0-2); WBC Negative HPF (0-5)
[2022-06-02 04:06] LABS: ALT 26 U/L (14-59); AST 13 U/L (15-37); Albumin 4.2 g/dL (3.4-5.0); Alkaline Phosphatase 77 U/L (46-116); BUN 12 mg/dL (7-18); Bilirubin, Total 0.8 mg/dL (0.2-1.0); CREATININE 0.8 mg/dL (0.55-1.02); Calcium 9.2 mg/dL (8.5-10.1); Chloride 102 mmol/L (98-107); Estimated GFR 100.96 (mL/min/1.73m2); Glucose 92 mg/dL (74-106); Sodium 139 mmol/L (136-145); Total Protein 7.5 g/dL (6.4-8.2)
[2022-06-02 04:07] LABS: Lipase 136 U/L (73-393)
[2022-06-02 04:52] VITALS: BP 103/51; PULSE 58; RESP 16; O2SAT 98
== END 2022-06-02 17:29 | disposition home or self-care (01) ==
PROVIDERS: Emergency Provider Emergency Medicine; PCP Student in an Organized Health Care Education/Training Program
DX: R10.33 Periumbilical pain (principal); Z98.890 Other specified postprocedural states
CPT/HCPCS: 36415; 80053; 81025; 83690; 99283; 81003; 81015; 85025; 99282

== ENCOUNTER 2023-02-16 01:16 | Outpatient (CLI) | payer OTHER, SELFPAY ==
[2023-02-16 11:04] LABS: Panorama Kit Sent via Fed Ex
[2023-02-16 11:27] LABS: Abs Immature Grans 0.23 10^3/uL (0.0-0.06); Absolute Basophil Count 0.08 10^3/uL (0.0-0.2); Absolute Eosinophil Count 0.18 10^3/uL (0.0-0.7); Absolute Lymphocyte Count 1.63 10^3/uL (1.2-3.4); Absolute Monocyte Count 0.72 10^3/uL (0.1-0.8); Absolute Neutrophil Count 9.99 10^3/uL (1.2-6.7); Basophils % 0.6; Eosinophils % 1.4; HCT 37.5 % (36.0-46.0); HGB 12.8 g/dL (11.2-15.7); Immature Grans % 1.8; Lymphocytes % 12.7; MCH 29.6 pg (27.0-33.0); MCHC 34.1 % (32.0-36.0); MCV 87 fL (80-95); MPV 9.2 fL (8.0-11.0); Monocytes % 5.6; Neutrophils % 77.9; Platelet Count 277 10^3/uL (130-400); RBC 4.33 10^6/uL (3.93-5.22); RDW 13.2 % (11.7-14.6); WBC 12.83 10^3/uL (4.4-10.8)
[2023-02-17 10:10] LABS: Hepatitis B Surface Ag Negative (Negative)
[2023-02-17 10:48] LABS: Hepatitis C Ab w Rflx HCV PCR Negative (Negative)
[2023-02-17 10:59] LABS: HIV-1/2 Ag & Ab Screen Negative (Negative)
[2023-02-17 11:47] LABS: Rubella IgG Ab (UVM) Positive (See Note); Varicella IgG Antibody Positive (See Note)
[2023-02-18 14:19] LABS: Syphilis IgG w/Reflex Nonreactive (Nonreactive)
== END 2023-02-16 01:17 | disposition home or self-care (01) ==
LOC: LBO 01:17
PROVIDERS: PCP Student in an Organized Health Care Education/Training Program; Visit Provider Advanced Practice Midwife
DX: O09.522 Supervision of elderly multigravida, second trimester; O28.5 Abnormal chromosomal and genetic finding on antenatal screening of mother; Z3A.00 Weeks of gestation of pregnancy not specified
CPT/HCPCS: 36415; 86787; 86803; 86850; 86900; 86901; 87340; 87389; 85025; 86762; 86780

== ENCOUNTER 2023-02-16 11:04 | Outpatient (REF) | payer OTHER, SELFPAY | END 2023-02-16 11:05 | disposition home or self-care (01) | LOC: LBN 11:04 | PROVIDERS: PCP Student in an Organized Health Care Education/Training Program; Visit Provider Advanced Practice Midwife | DX: Z34.91 Encounter for supervision of normal pregnancy, unspecified, first trimester (principal); Z3A.13 13 weeks gestation of pregnancy | CPT/HCPCS: 87086 ==

== ENCOUNTER 2023-03-29 10:08 | Outpatient (REF) | payer OTHER, SELFPAY ==
[2023-03-30 13:54] LABS: Chlamydia Result Negative (Negative); GC Result Negative (Negative)
== END 2023-03-29 10:09 | disposition home or self-care (01) ==
LOC: LBN 10:08
PROVIDERS: PCP Student in an Organized Health Care Education/Training Program; Visit Provider Obstetrics & Gynecology
DX: Z34.92 Encounter for supervision of normal pregnancy, unspecified, second trimester (principal); Z3A.19 19 weeks gestation of pregnancy
CPT/HCPCS: 87491; 87591

== ENCOUNTER 2023-05-25 03:50 | Outpatient (CLI) | payer OTHER, SELFPAY ==
[2023-05-25 10:38] LABS: HCT 36.3 % (36.0-46.0); HGB 12.2 g/dL (11.2-15.7); MCH 29.8 pg (27.0-33.0); MCHC 33.6 % (32.0-36.0); MCV 89 fL (80-95); MPV 9.7 fL (8.0-11.0); Platelet Count 198 10^3/uL (130-400); RBC 4.09 10^6/uL (3.93-5.22); RDW 13.4 % (11.7-14.6); RDW-SD 43.6 fL; WBC 14.06 10^3/uL (4.4-10.8)
[2023-05-25 12:15] LABS: Glucose,1 Hr (Glucola) 93 mg/dL (80-140)
[2023-05-25 12:40] LABS: Vitamin D 25 Total 30.5 ng/mL (30-100)
== END 2023-05-25 03:51 | disposition home or self-care (01) ==
LOC: LBO 03:50
PROVIDERS: Advanced Practice Midwife; PCP Student in an Organized Health Care Education/Training Program; Visit Provider Advanced Practice Midwife
DX: O09.522 Supervision of elderly multigravida, second trimester (principal); O26.892 Other specified pregnancy related conditions, second trimester; E55.9 Vitamin D deficiency, unspecified; Z3A.27 27 weeks gestation of pregnancy
CPT/HCPCS: 36415; 82306; 82950; 85027

== ENCOUNTER 2023-08-03 13:29 | Outpatient (REF) | payer OTHER, SELFPAY | END 2023-08-03 13:30 | disposition home or self-care (01) | LOC: LBN 13:29 | PROVIDERS: PCP Student in an Organized Health Care Education/Training Program; Visit Provider Obstetrics & Gynecology | DX: Z34.93 Encounter for supervision of normal pregnancy, unspecified, third trimester (principal); Z36.85 Encounter for antenatal screening for Streptococcus B; Z3A.37 37 weeks gestation of pregnancy | CPT/HCPCS: 87081 ==

== ENCOUNTER 2023-08-09 12:29 | Outpatient (CLI) | payer OTHER, SELFPAY ==
[2023-08-09 13:14] LABS: ROM Plus Positive
== END 2023-08-09 13:20 ==
LOC: BCD 12:41 → OBS 12:48
PROVIDERS: PCP Student in an Organized Health Care Education/Training Program; Visit Provider Obstetrics & Gynecology
DX: O42.92 Full-term premature rupture of membranes, unspecified as to length of time between rupture and onset of labor (principal); Z3A.38 38 weeks gestation of pregnancy
CPT/HCPCS: 84112

== ENCOUNTER 2023-08-09 13:54 | Inpatient (IN) | payer OTHER, SELFPAY ==
[2023-08-09] VITALS (41 sets, daily range): BP systolic 107–118; BP diastolic 55–75; PULSE 0–101; RESP 16; TEMP 36.6–37.1; O2SAT 100
[2023-08-09 15:52] LABS: HCT 34.2 % (36.0-46.0); HGB 11.3 g/dL (11.2-15.7); MCH 28.8 pg (27.0-33.0); MCV 87 fL (80-95); MPV 10.1 fL (8.0-11.0); Platelet Count 193 10^3/uL (130-400); RBC 3.92 10^6/uL (3.93-5.22); RDW 13.6 % (11.7-14.6); RDW-SD 43.2 fL; WBC 14.47 10^3/uL (4.4-10.8)
--- NOTE | 2023-08-09 17:03 | HPE_ITS ---
Date of service: 08/09/23 Time of Service: 17:16 Assessment and Plan Assessment and plan (1) Rupture, membranes, premature: Status: Acute Assessment and plan: P0 @38.2wks with rupture of membranes, no signs of labor. Cervix unchanged from exam 4hrs prior. Plan for pitocin because cervix is very soft. Discussed administration. Questions answered. Labs drawn. IV pending. FHR cat 1. GBS negative. OB-HPI Labor/Delivery History of Present Illness Reason for Visit: SROM Chief Complaint: Suspected Rupture of Membranes , Associated Signs and Symptoms of Suspected ROM: small leak of fluid @11:30am. CHRISTIANO Calculator Estimated Delivery Date Method Current WG Current Estimate 08/21/23 LMP (Certain) 38w 2d Other Estimates 08/21/23 Ultrasound #1 38w 2d Comments: Pt reports feeling a small gush of fluid around 11:30. She did not soak through her cloths. ROM+ was positive for rupture of membranes. She went home to gather her things and then returned for labor. She has small contractions but nothing new today. Feeling good movement. History of Present Expected Delivery Route/Plan ZULLY - FOB - Ivan Chamberlain (first child) BB no circ Planning epidural, supports are FOB and her mother (Taylor) Specific Issues/Plan 1. History of eating disorder & anxiety, doing better with Citalopram 2. Identical twin was tested for SMA and CF = negative; She did have Xander Sachs testing with some + result, did not need to have her tested or child tested or follow up 3. cfDNA- WNL-declines AFP 4. Plan anesthesia consult in 3rd trimester (twin had nonworking epidural) message to [employer]YSTER CULTURIST sent 06/08/23 -done. Review of Systems Genitourinary Genitourinary: Reports system reviewed and no additional complaints, except as documented PFSH All Active Problems (Updated 08/09/23 @ 17:13 by Imelda Weber MD) Rupture, membranes, premature (Acute) (Acute) Gilbert syndrome (Acute) Vitamin D deficiency (Acute) Anxiety (Chronic) Celexa helps. Family and personal Hx anx/depression. Managed with good insight and strong support from . Medical History (Updated 08/09/23 @ 17:13 by Imelda Weber MD) Other specified counseling Family history of breast cancer mother Normal colonoscopy (~12/10/21) Female infertility Total bilirubin, elevated PONV (postoperative nausea and vomiting) Family history of colon cancer requiring screening colonoscopy MGP Dg age 45 Mother has A. polyp CE- 12/24 normal Repeat 2026 Colon cancer screening Eating disorder Family history of infertility History of hypotension Low, but stable, BP. Lightheaded in summer .. Monitors hydration, occasional inc salt intake. Pedialyte helps. Family history of colon cancer Maternal grandfather Dx @ 43yo, Stg 4! Mo with polyps in 30's. Recommending screening @ 30yo with 5-10 yr recall, [ ] TBD. 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 Hx LOC. Hx of tendinitis Knee, managed with self-care/home gym/exercise routine. PT PRN. Vaso-vagal reaction Hx vaso-vagal rxn (immuniz, IV needles) .. possible assoc with N/V/GI issues (?) History of snoring Long Hx, with enlarged turbinates, sinus congestion .. Hx ENT (-). No sign of apnea; good sleep. Seasonal allergies Long Hx, with enlrged turb and sinus congestion.. Antihistamines PRN. Intermittent vomiting Hx cyclical vomiting as a child; nausea/migraines as teen.. Possible episodic n/v 2' fatigue, stress, hormonal changes (?) Migraine with aura and without status migrainosus, not intractable Managed with Ibuprofen .. (6-8 hr episodes) Surgical History (Updated 04/27/23 @ 10:33 by Martha Gillis) Status post dilation and curettage History of colonoscopy (~12/10/21) History of local excision of skin lesion Benign, follows with Derm ([facility] [place]). H/O hernia repair (~02/1992) Family History (Updated 02/16/23 @ 10:10 by Gill Taylor CNM) Maternal Grandfather Substance use disorder opioids, dcsd Colon cancer Mother Anxiety Depression Hypertension Obesity Colon polyps age 30 Breast cancer Sister Anxiety Depression Brother Asthma Paternal Aunt Breast cancer Maternal Grandmother Breast cancer Paternal Grandmother Cancer hodgkin lymphoma Paternal Grandfather Prostate cancer Depression Father Depression Psoriasis Social History Smoking/Tobacco Use Status: Never Smoking risk assessment performed?: Yes Alcohol Intake: current Alcohol Intake frequency: a few times a month Alcohol type: beer Drug use: Never Substance use type: does not use Adopted: No Caregiver/Support person: No Foster care: No Household members: spouse Housing: house Number of Children: 0 number of grandchildren: 0 Communication Needs: None Education Level: other Details: MD Do you need help understanding health information?: Never 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 Pets and animals: Yes (2) Pets and animals: cat(s) Sexually active: Yes Do you think of yourself as: straight/heterosexual Current gender identity: female What is your relationship status?: How often do you talk on the phone with friends or family?: three or more times per week How often do you get together with friends or relatives?: twice per week Do you belong to any clubs or organized social groups?: no Panel score (0-1 are the most socially isolated patients): 2 What type of physical activity do you participate in: weight lifting, other Details: skiing and running Duration: 30-45 minutes/day Frequency: 5-6 times per week Zulema/Hinduism: None Special zulema needs: No Seatbelt use: always Helmet use: Yes Helmet use: always Drive intox or ride w/intox driver's license examiner: No Do you feel safe at home: Yes Do you feel safe in your relationship?: Yes Female Reproductive History Menstrual Age of Menarche: 12 Duration of menses: 6-7 days control method: none History History 2 Para 0 Hx # Term Pregnancies 0 Multiple births 0 Hx # Pregnancies 0 Ectopic pregnancies 0 AB induced 0 Hx Number of Living Children 0 AB spontaneous 1 Meds Allergies and Home Medications Allergies Allergy/AdvReac Type Severity Reaction Status Date / Time No Known Allergies Allergy Verified 08/09/23 14:00 Home Medications Medication Instructions Recorded Confirmed Type loratadine 10 mg tablet (Claritin) 10 mg PO HS PRN 06/07/21 07/20/23 History cholecalciferol (vitamin D3) 50 50 mcg PO HS 07/01/21 07/20/23 History mcg (2,000 unit) capsule prenat.vits,holley,[id number] 1 tab PO DAILY 01/16/23 07/20/23 History triamcinolone acetonide 55 mcg 1 spray intranasal HS PRN 03/16/23 07/20/23 History nasal spray aerosol (Nasacort) famotidine 20 mg tablet 20 mg PO PRN 03/29/23 07/20/23 History docusate sodium 100 mg capsule 100 mg PO DAILY 04/27/23 07/20/23 History citalopram 40 mg tablet 40 mg PO DAILY #60 tabs 07/18/23 07/20/23 Rx Exam Physical Exam Vital signs: Temp Pulse Resp BP Pulse Ox 98.8 F 93 H 16 118/75 100 08/09/23 15:32 08/09/23 15:32 08/09/23 15:32 08/09/23 15:32 08/09/23 15:32 Vital Signs Reviewed: Yes Detailed Labor and Delivery Exam Dilation: 2 Effacement (%): 60 station: -3 Position: ROP Cervix position: posterior Consistency: soft Caballero Score: Cervical Points Exam 0 1 2 3 Dilation Closed 1-2cm 3-4 cm 5-6cm Effacement 0-30% 40-50% 60-70% 80% Consistency Firm Medium Soft Station -3 -2 -1,0 +1,+2 Position Posterior Mid Anterior Amniotic Membrane Status: Ruptured Rupture Method: Spontaneous Amniotic Fluid: Clear ROM Plus: Positive Fetus A Heart Rate Baseline: 140 Monitor Accelerations: 15 X 15 Monitor Decelerations: None Variability: Moderate (6-25 BPM) Presentation: Vertex Categories: Category I Date of Membrane Rupture: 08/09/23 Time of Membrane Rupture: 11:30 Detailed HEENT Exam Head: Present normocephalic and atraumatic Detailed Abdominal Exam Comments: gravid, nontender Detailed Neurological Exam Neurological: Present alert, oriented X3 and CN II-XII intact DetailedPsychiatric Exam Psychiatric: Present normal affect, normal thought process and cooperative Results Results Group Beta Strep: Negative Blood Type: O+ Rubella Status: Immune Varicella Immunity: Immune Abnormal Lab Findings: Abnormal Labs 08/09/23 15:40 WBC 14.47 H RBC 3.92 L Hct 34.2 L Risk Assessment Risk for Shoulder Dystocia Historical/Initial OB: NEGATIVE FOR: Pelvic Abnormality, Pre- BMI>30, Previous Shoulder Dystocia or Previous Macrosomia Increased Risk?: No Risk for Pre-Eclampsia Daily Dose ASA Indicated: No Yes, if one or more: NEGATIVE FOR: Hx Pre-E/Gest HTN, Chronic HTN, Multiple Gestation, Pre-gestational DM, Renal Disease, Systemic Lupus or APA Syndrome Yes, if 2 or more: POSITIVE FOR: Nulliparity; NEGATIVE FOR: Age>= 35 yrs, >10yr btwn pregnancies, BMI>30, ethinicty, Mother/Sister w/ Pre-E or Previous IUGR Risk for Post- Hemorrhage Initial: NEGATIVE FOR: Multiple Gestation, Previous PPH, Known Clotting Deficiency, Grand Multiparity or Anticoagulation At Risk?: No Risks Reviewed Risks Reviewed Upon Admission: Yes
[2023-08-09] MEDS: Lactated Ringers 1,000 ML 125 ML IV (18:05)
[2023-08-09] MEDS: Oxytocin/Normal Saline 30 UNIT/500 ML BAG 2 UNITS IV (18:05)
[2023-08-09] MEDS: Calcium Carbonate *TUMS* 500 MG CHEW PO (20:40)
[2023-08-09] MEDS: Citalopram 20 MG TAB 40 MG PO (21:05)
[2023-08-09] MEDS: Famotidine 20 MG TAB PO (23:58)
[2023-08-10] VITALS (54 sets, daily range): BP systolic 98–115; BP diastolic 52–69; PULSE 36–98; RESP 16–18; TEMP 36–36.9; O2SAT 96–100; BMI 29.2
[2023-08-10] MEDS: Ondansetron 4 MG/2 ML VIAL IVP (01:30)
--- NOTE | 2023-08-10 02:12 | W.PM.OBNL1 ---
Date of service: 08/10/23 Time of Service: 02:12 Pelvic Exam Dilation: 2 Effacement (%): 80 station: -2 Cervix Position: anterior Consistency: soft Fetus A Heart Rate Baseline: 120 Presentation: Vertex Variability: Moderate (6-25 BPM) Categories: Category I Accelerations: 15 X 15 Decelerations: None Amniotic Membrane Status: Ruptured Assessment and Plan Assessment and plan (1) Rupture, membranes, premature: Status: Acute Assessment and plan: ROM, now undergoing induction. FHT cat 1. GBS neg. Pitocin @10 - will continue with this. Objective Abnormal lab results 08/09/23 Range/Units 15:40 WBC 14.47 H (4.4-10.8) 10^3/uL RBC 3.92 L (3.93-5.22) 10^6/uL Hct 34.2 L (36.0-46.0) % Temp Pulse Resp BP Pulse Ox 97.3 F L 80 16 111/59 L 100 08/10/23 01:27 08/10/23 02:11 08/09/23 15:32 08/10/23 01:27 08/09/23 15:32 Laboratory Results WBC 14.47 10^3/uL (4.4-10.8) H 08/09/23 15:40 RBC 3.92 10^6/uL (3.93-5.22) L 08/09/23 15:40 Hgb 11.3 g/dL (11.2-15.7) 08/09/23 15:40 Hct 34.2 % (36.0-46.0) L 08/09/23 15:40 MCV 87 fL (80-95) 08/09/23 15:40 MCH 28.8 pg (27.0-33.0) 08/09/23 15:40 MCHC 33.0 % (32.0-36.0) 08/09/23 15:40 RDW 13.6 % (11.7-14.6) 08/09/23 15:40 Plt Count 193 10^3/uL (130-400) 08/09/23 15:40 MPV 10.1 fL (8.0-11.0) 08/09/23 15:40 Patient ABO/Rh O Positive 08/09/23 15:40 Antibody Screen NEGATIVE 08/09/23 15:40 Subjective Interval history since last seen: Pt was having more regular stronger contractions but then she vomited about 30min ago and they have spaced out more since then. She is struggling with reflux when she tries to rest. Results Hemoglobin/Hematocrit: Hgb 11.3 g/dL (11.2-15.7) 08/09/23 15:40 Hct 34.2 % (36.0-46.0) L 08/09/23 15:40 Abnormal Lab Findings: Abnormal Labs 08/09/23 15:40 WBC 14.47 H RBC 3.92 L Hct 34.2 L
--- NOTE | 2023-08-10 08:42 | PGE_ITS ---
Date of service: 08/10/23 Time of Service: 09:06 Informed Consent Informed Consent: Augmentation of Labor and Risk,Benefits,Alternatives Discussed Contractions Monitor Mode: External Contraction Frequency(min): q3min Contraction Duration(sec): mild Fetus A Monitor: External (US) Heart Rate Baseline: 150 Presentation: Cephalic Variability: Moderate (6-25 BPM) Categories: Category I FHR Rhythm: Regular Characteristics: Normal Accelerations: 15 X 15 Decelerations: None Amniotic Membrane Status: Ruptured Assessment and Plan Assessment and plan (1) Rupture, membranes, premature: Status: Acute Assessment and plan: Pt s/p SROM, GBS neg and Oxytocin augmentation of labor overnight. Pt remains comfortable this am. Discussed with pt and her Ivan plan of care: continue to advance Oxytocin infusion, avoid cervical exams and no plans for prophylatic antibiotics at this time. Qualifiers: PROM onset of labor timing: unspecified duration between rupture of membranes and onset of labor PROM gestational age: full term Qualified Code(s ): O42.92 - Full-term premature rupture of membranes, unspecified as to length of time between rupture and onset of labor Objective Abnormal lab results 08/09/23 Range/Units 15:40 WBC 14.47 H (4.4-10.8) 10^3/uL RBC 3.92 L (3.93-5.22) 10^6/uL Hct 34.2 L (36.0-46.0) % Temp Pulse Resp BP Pulse Ox 97.5 F L 88 16 110/61 100 08/10/23 07:33 08/10/23 07:33 08/09/23 15:32 08/10/23 07:33 08/09/23 15:32 Laboratory Results WBC 14.47 10^3/uL (4.4-10.8) H 08/09/23 15:40 RBC 3.92 10^6/uL (3.93-5.22) L 08/09/23 15:40 Hgb 11.3 g/dL (11.2-15.7) 08/09/23 15:40 Hct 34.2 % (36.0-46.0) L 08/09/23 15:40 MCV 87 fL (80-95) 08/09/23 15:40 MCH 28.8 pg (27.0-33.0) 08/09/23 15:40 MCHC 33.0 % (32.0-36.0) 08/09/23 15:40 RDW 13.6 % (11.7-14.6) 08/09/23 15:40 Plt Count 193 10^3/uL (130-400) 08/09/23 15:40 MPV 10.1 fL (8.0-11.0) 08/09/23 15:40 Patient ABO/Rh O Positive 08/09/23 15:40 Antibody Screen NEGATIVE 08/09/23 15:40 Vital Signs Reviewed: Yes Subjective Patient Reports: No new Complaints Interval history since last seen: Pt is a 33yo female with SROM at ~ 11:00 08/09/23. Oxytocin overnight. 16mu/ml max dose Results Hemoglobin/Hematocrit: Hgb 11.3 g/dL (11.2-15.7) 08/09/23 15:40 Hct 34.2 % (36.0-46.0) L 08/09/23 15:40 Abnormal Lab Findings: Abnormal Labs 08/09/23 15:40 WBC 14.47 H RBC 3.92 L Hct 34.2 L
--- NOTE | 2023-08-10 12:19 | PGE_ITS ---
Date of service: 08/10/23 Time of Service: 12:19 Informed Consent Informed Consent: Augmentation of Labor and Risk,Benefits,Alternatives Discussed Pelvic Exam Dilation: 3 Effacement (%): 75 station: -1 Cervix Position: mid Consistency: soft Vaginal Exam Presentation: Cephalic Contractions Monitor Mode: External Contraction Frequency(min): 3 Contraction Duration(sec): 40-60 Intensity: Mild/Moderate Fetus A Monitor: External (US) Heart Rate Baseline: 140 Presentation: Cephalic Variability: Moderate (6-25 BPM) Categories: Category I FHR Rhythm: Regular Characteristics: Normal Accelerations: 15 X 15 Decelerations: None Amniotic Membrane Status: Ruptured Assessment and Plan Assessment and plan (1) Rupture, membranes, premature: Status: Acute Assessment and plan: Pt is now 24hrs s/p SROM at 38w2d with Oxytocin augmentation of labor overnight. Maximum concentration of Oxytocin 20mu/min with apparently adequate uterine contractions. Pt declines IUPC to document [place] units. She is not experiencing contraction pain or discomfort. Discussed with pt her labor progress and my concern that her labor may be dysfunctional. I do not feel that there is much benefit to prolonging her labor if there is no cervical change in approximately two hours. We repeat cervical exam at that time. Qualifiers: PROM onset of labor timing: unspecified duration between rupture of membranes and onset of labor PROM gestational age: full term Qualified Code(s): O42.92 - Full-term premature rupture of membranes, unspecified as to length of time between rupture and onset of labor (2) Slow progress in first stage of labor: Status: Acute Objective Abnormal lab results 08/09/23 Range/Units 15:40 WBC 14.47 H (4.4-10.8) 10^3/uL RBC 3.92 L (3.93-5.22) 10^6/uL Hct 34.2 L (36.0-46.0) % Temp Pulse Resp BP Pulse Ox 98.4 F 88 16 109/63 100 08/10/23 11:39 08/10/23 11:53 08/09/23 15:32 08/10/23 11:53 08/09/23 15:32 Laboratory Results WBC 14.47 10^3/uL (4.4-10.8) H 08/09/23 15:40 RBC 3.92 10^6/uL (3.93-5.22) L 08/09/23 15:40 Hgb 11.3 g/dL (11.2-15.7) 08/09/23 15:40 Hct 34.2 % (36.0-46.0) L 08/09/23 15:40 MCV 87 fL (80-95) 08/09/23 15:40 MCH 28.8 pg (27.0-33.0) 08/09/23 15:40 MCHC 33.0 % (32.0-36.0) 08/09/23 15:40 RDW 13.6 % (11.7-14.6) 08/09/23 15:40 Plt Count 193 10^3/uL (130-400) 08/09/23 15:40 MPV 10.1 fL (8.0-11.0) 08/09/23 15:40 Patient ABO/Rh O Positive 08/09/23 15:40 Antibody Screen NEGATIVE 08/09/23 15:40 Subjective Patient Reports: No new Complaints Interval history since last seen: Patient reports feeling discouraged. She is not appreciating contractions. When she was ambulating she felt mild to moderate contractions. No leakage of fluid no vaginal bleeding, no GI issues Results Hemoglobin/Hematocrit: Hgb 11.3 g/dL (11.2-15.7) 08/09/23 15:40 Hct 34.2 % (36.0-46.0) L 08/09/23 15:40 Abnormal Lab Findings: Abnormal Labs 08/09/23 15:40 WBC 14.47 H RBC 3.92 L Hct 34.2 L
[2023-08-10] MEDS: Lactated Ringers 1,000 ML 125 ML IV ×2 (12:20→16:00)
[2023-08-10] MEDS: Calcium Carbonate *TUMS* 500 MG CHEW PO (12:24)
--- NOTE | 2023-08-10 14:41 | ANES.PREOP_ITS ---
General Info Date of Service Date Performed: 08/10/23 Height: 5 ft 5 in Weight: 79.832 kg Body Mass Index (BMI): 29.2 Surgical Procedure: Operation Date: 08/10/23 15:10 Proposed Procedure Side Surgeon p Section Yajaira Bland MD Meds Allergies and Home Medications Allergies Allergy/AdvReac Type Severity Reaction Status Date / Time No Known Allergies Allergy Verified 08/09/23 14:00 Home Medication Medication Instructions Recorded loratadine 10 mg tablet (Claritin) 10 mg PO HS PRN 06/07/21 cholecalciferol (vitamin D3) 50 50 mcg PO HS 07/01/21 mcg (2,000 unit) capsule prenat.vits,holley,qmz-clua-yjirg 1 tab PO DAILY 01/16/23 triamcinolone acetonide 55 mcg 1 spray intranasal HS PRN 03/16/23 nasal spray aerosol (Nasacort) famotidine 20 mg tablet 20 mg PO PRN 03/29/23 docusate sodium 100 mg capsule 100 mg PO DAILY 04/27/23 citalopram 40 mg tablet 40 mg PO DAILY #60 tabs 07/18/23 Current Visit Medications: Current Medications Generic Name Dose Route Start Last Admin Trade Name Freq PRN Reason Stop Dose Admin Calcium Carbonate 500 mg 08/09/23 17:40 08/10/23 12:24 Calcium Carbonate *Tums* 500 Mg Chew PO 500 mg QID PRN PRN Administration Citalopram Hydrobromide 40 mg 08/09/23 22:00 08/09/23 21:05 Citalopram 20 Mg Tab PO 40 mg HS BEVERLY Administration Ringer's Solution 1,000 mls @ 125 mls/hr 08/09/23 17:00 08/10/23 12:20 IV 125 mls/hr INFUSION BEVERLY Administration Oxytocin/Sodium Chloride 30 unit in 500 mls @ 2 mls/hr 08/09/23 17:00 08/10/23 14:33 Pitocin/Normal Saline IV 0 milliunits/min INFUSION BEVERLY 0 mls/hr Titration Protocol 2 MILLIUNITS/MIN IV Miscellaneous Supplies 1 each 08/09/23 15:30 Iv Access IV DIRECTED BEVERLY Ondansetron HCl 4 mg 08/10/23 01:20 08/10/23 01:30 Ondansetron 4 Mg/2 Ml Vial IVP 4 mg Q4H PRN PRN Administration Sodium Chloride 0 ml 08/09/23 15:24 Normal Saline Flush 10 Ml Syr IVP PRN PRN Sodium Chloride 0 ml 08/09/23 20:00 Normal Saline Flush 10 Ml Syr IVP BID BEVERLY Sodium Chloride 0 ml 08/09/23 15:24 Normal Saline 10 Ml Vial IJ DIRECTED PRN PFSH Active Problems Active Problems: Problem Status Onset Code Rupture, membranes, premature O42.90 Z34.90 Anxiety F41.9 Vitamin D deficiency E55.9 Gilbert syndrome E80.4 Medical History Medical History (Updated 08/10/23 @ 14:50 by Yajaira Bland MD) Other specified counseling Family history of breast cancer mother Normal colonoscopy (~12/10/21) Female infertility Total bilirubin, elevated PONV (postoperative nausea and vomiting) Family history of colon cancer requiring screening colonoscopy MGP Dg age 45 Mother has A. polyp CE- 12/24 normal Repeat 2026 Colon cancer screening Eating disorder Family history of infertility History of hypotension Low, but stable, BP. Lightheaded in summer .. Monitors hydration, occasional inc salt intake. Pedialyte helps. Family history of colon cancer Maternal grandfather Dx @ 43yo, Stg 4! Mo with polyps in 30's. Recommending screening @ 30yo with 5-10 yr recall, [ ] TBD. 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 Hx LOC. Hx of tendinitis Knee, managed with self-care/home gym/exercise routine. PT PRN. Vaso-vagal reaction Hx vaso-vagal rxn (immuniz, IV needles) .. possible assoc with N/V/GI issues (?) History of snoring Long Hx, with enlarged turbinates, sinus congestion .. Hx ENT (-). No sign of apnea; good sleep. Seasonal allergies Long Hx, with enlrged turb and sinus congestion.. Antihistamines PRN. Intermittent vomiting Hx cyclical vomiting as a child; nausea/migraines as teen.. Possible episodic n/v 2' fatigue, stress, hormonal changes (?) Migraine with aura and without status migrainosus, not intractable Managed with Ibuprofen .. 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 Has Vasovagal reaction with needles. Surgical History Surgical History (Updated 04/27/23 @ 10:33 by Martha Gillis) Status post dilation and curettage History of colonoscopy (~12/10/21) History of local excision of skin lesion Benign, follows with Derm ([facility] [place]). H/O hernia repair (~02/1992) Tobacco Smoking/Tobacco Use Status: Never Passive smoking exposure: No Alcohol Alcohol Intake: current Alcohol intake frequency: a few times a month Alcohol type: beer Substance Use Substance use: Never Substance use type: does not use Prental History History 2 2 Para 0 Hx # Term Pregnancies 0 Multiple births 0 Hx # Pregnancies 0 Ectopic pregnancies 0 AB induced 0 Hx Number of Living Children 0 AB spontaneous 1 Vital Signs and Lab Results Vital Signs Most Recent Vital Signs in EMR: Most Recent Vital Signs Temp Pulse Resp BP Pulse Ox 36.4 C L 97 H 17 115/69 99 08/10/23 14:24 08/10/23 14:24 08/10/23 14:24 08/10/23 14:24 08/10/23 14:24 Lab Results 08/09/23 15:40 Blood Type / Crossmatch: 2 Patient ABO/Rh O Positive 08/09/23 Antibody Screen NEGATIVE 08/09/23 Complete Blood Count: 2 White Blood Count 14.47 10^3/uL (4.4-10.8) H 08/09/23 15:40 Red Blood Count 3.92 10^6/uL (3.93-5.22) L 08/09/23 15:40 Hemoglobin 11.3 g/dL (11.2-15.7) 08/09/23 15:40 Hematocrit 34.2 % (36.0-46.0) L 08/09/23 15:40 Platelet Count 193 10^3/uL (130-400) 08/09/23 15:40 Complete Metabolic Panel: 2 No Data to Display Liver Function Panel: 2 No Data to Display Coagulation Panel: 2 No Data to Display Cardiac Panel: 2 No Data to Display Arterial Blood Gas: 2 No Data to Display Venous Blood Gas: 2 No Data to Display Pancreas Panel: 2 No Data to Display Thyroid Panel: 2 No Data to Display Infectious Disease: 2 No Data to Display Blood Cultures: 2 No Data to Display Toxicology Panel: 2 No Data to Display Panel: 2 No Data to Display Anesthesia Assessment and Plan Anesthesia History Personal History: PONV Family History: No Family History of Anesthesia Complications Exercise Tolerance Exercise Tolerance: Metabolic Equivalents>4 Pertinent Negatives Pertinent Negatives: No Major Cardiovascular Symptoms or Complaints and No Major Pulmonary Symptoms or Complaints Cardiac & Pulmonary Exam Cardiac Exam: Normal S1/S2 Heart Sounds Pulmonary Exam: Clear Bilateral Breath Sounds Implantable Cardiac Device Does patient have a Pacemaker or an ICD?: No Airway Exam Known Difficult Airway: No Mallampati Class: 1 Mouth Opening: Normal (> 3cm) Thyromental Distance: Greater than 3 cm Neck Range of Motion: Full ROM Neck Circumference: Normal Teeth Condition: Normal Dentition ASA Classification ASA Score: ASA 2 Emergency Case?: No NPO Status NPO Status: Full Stomach (Significant GERD symptoms) Status Status: Confirmed Anesthesia Plan Resuscitation Status: Full Code Anesthesia Technique: Spinal Anesthesia Airway Planned: Natural Airway Pain Management: Intrathecal Analgesia Monitors Used: Standard Monitors Preoperative Comments:: SAB with GA/ETT/RSI backup
--- NOTE | 2023-08-10 14:47 | W.PM.OBNL1 ---
Date of service: 08/10/23 Time of Service: 14:47 Informed Consent Informed Consent: Section Delivery and Risk,Benefits,Alternatives Discussed Pelvic Exam Dilation: 3 Effacement (%): 75 station: -1 Cervix Position: mid Consistency: soft Vaginal Exam Presentation: Cephalic Contractions Monitor Mode: External Contraction Frequency(min): 3-4 Contraction Duration(sec): 60 Fetus A Monitor: External (US) Presentation: Cephalic Variability: Moderate (6-25 BPM) Categories: Category I FHR Rhythm: Regular Characteristics: Normal Accelerations: 15 X 15 Decelerations: None Amniotic Membrane Status: Ruptured Assessment and Plan Assessment and plan (1) Labor abnormality: Status: Acute Assessment and plan: Patient currently 38W3D EGA with spontaneous rupture membranes for approximately 30 hours with no appreciable cervical change despite adequate contractions with oxytocin augmentation of labor. I have advised the patient to undergo a primary delivery for arrest of dilation and descent. She is agreeable to the plan. She was counseled regarding complications of the delivery including infection damage to surrounding structures including bowel, bladder, blood vessels requiring a transfusion. Her questions were answered informed consent was obtained Objective Abnormal lab results 08/09/23 Range/Units 15:40 WBC 14.47 H (4.4-10.8) 10^3/uL RBC 3.92 L (3.93-5.22) 10^6/uL Hct 34.2 L (36.0-46.0) % Temp Pulse Resp BP Pulse Ox 97.5 F L 97 H 17 115/69 99 08/10/23 14:24 08/10/23 14:24 08/10/23 14:24 08/10/23 14:24 08/10/23 14:24 Laboratory Results WBC 14.47 10^3/uL (4.4-10.8) H 08/09/23 15:40 RBC 3.92 10^6/uL (3.93-5.22) L 08/09/23 15:40 Hgb 11.3 g/dL (11.2-15.7) 08/09/23 15:40 Hct 34.2 % (36.0-46.0) L 08/09/23 15:40 MCV 87 fL (80-95) 08/09/23 15:40 MCH 28.8 pg (27.0-33.0) 08/09/23 15:40 MCHC 33.0 % (32.0-36.0) 08/09/23 15:40 RDW 13.6 % (11.7-14.6) 08/09/23 15:40 Plt Count 193 10^3/uL (130-400) 08/09/23 15:40 MPV 10.1 fL (8.0-11.0) 08/09/23 15:40 Patient ABO/Rh O Positive 08/09/23 15:40 Antibody Screen NEGATIVE 08/09/23 15:40 Vital Signs Reviewed: Yes Objective Narrative Objective Narrative: No cervical change from previous exam. Patient maximum oxytocin infusion 20 milliunits/min. Subjective Patient Reports: No new Complaints Interval history since last seen: just awoken from sleep Results Hemoglobin/Hematocrit: Hgb 11.3 g/dL (11.2-15.7) 08/09/23 15:40 Hct 34.2 % (36.0-46.0) L 08/09/23 15:40 Abnormal Lab Findings: Abnormal Labs 08/09/23 15:40 WBC 14.47 H RBC 3.92 L Hct 34.2 L
[2023-08-10] MEDS: AZITHROMYCIN 500 MG in Normal Saline 250 ML 250 MG IVPB (14:54)
[2023-08-10] MEDS: ceFAZolin 2 GM/50 ML BAG IVPB (14:54)
[2023-08-10] MEDS: Sodium Citrate 30 ML CUP PO (14:54)
[2023-08-10] MEDS: Bupivacaine 0.25% Pres-Free 30 ML VIAL (16:09)
[2023-08-10] MEDS: Oxytocin/Normal Saline 30 UNIT/500 ML BAG 95 UNITS IV (16:45)
[2023-08-10 17:05] LABS: HCT 31.7 % (36.0-46.0); HGB 10.4 g/dL (11.2-15.7); MCH 29.1 pg (27.0-33.0); MCHC 32.8 % (32.0-36.0); MCV 89 fL (80-95); Platelet Count 190 10^3/uL (130-400); RBC 3.58 10^6/uL (3.93-5.22); RDW 13.8 % (11.7-14.6); RDW-SD 44.6 fL; WBC 17.63 10^3/uL (4.4-10.8)
[2023-08-10 17:24] LABS: Absolute Lymphocyte Count 1.59 10^3/uL (1.2-3.4); Absolute Monocyte Count 1.06 10^3/uL (0.1-0.8); Absolute Neutrophil Count 14.99 10^3/uL (1.2-6.7); Atypical Lymphocytes % 1
[2023-08-10 17:25] LABS: Diff Comment Diff Reviewed; RBC Morphology Normal
[2023-08-10] MEDS: Lactated Ringers 1,000 ML 120 ML IV (17:59)
--- NOTE | 2023-08-10 20:34 | W.ANESPOSTOP ---
Postoperative Evaluation Date, Time and Location Date Performed: 08/10/23 Time Performed: 20:34 Patient Location: Obstetrics Vital Signs Most Recent Imported Vital Signs: Most Recent Vital Signs Temp Pulse Resp BP Pulse Ox 36.7 C 82 18 103/62 98 08/10/23 18:45 08/10/23 20:00 08/10/23 20:00 08/10/23 20:00 08/10/23 20:00 Pain Score Most Recent Pain Score: Most Recent Pain Score Pain Level [Abdomen] 0 08/10/23 18:45 Pain Level 3 08/10/23 20:29 Assessment Mental Status: Awake (Alert & Oriented to Patient Baseline) Airway and Respiratory Function: Patent airway with normal (patient baseline) respiratory exam Cardiovascular Function: Hemodynamically Stable Hydration Status: Adequately Hydrated Nausea & Vomiting: No Nausea or Vomiting Pain: Pt. Denies Any Pain Peripheral Nerve Block: Patient did not receive a nerve block
[2023-08-10] MEDS: Citalopram 20 MG TAB 40 MG PO (22:08)
[2023-08-10] MEDS: Ketorolac 30 MG/ML VIAL IVP (22:09)
--- NOTE | 2023-08-10 22:24 | W.PM.OBCSECT ---
Date of service: 08/10/23 Time of Service: 22:24 Operative Note Operative Note Delivery Method: Unscheduled STAT: No and Primary NTSV>37 Weeks: Yes DATE OF PROCEDURE: 08/10/23 PRE-OP DIAGNOSES: IUP @ 38w3d EGA. PROM. Unsuccessful induction of labor. POST-OP DIAGNOSES: same PROCEDURE: Primary unscheduled Low Transverse delivery. SURGEON: Yajaira Bland Assisting Surgeon: Lucía Mosqueda Anesthesia: spinal Estimated blood loss (mL): 600 Patient was transported to: floor Patient's condition: stable Indications: 33yo G2 now P1 female with PROM on 08/09/23 at 38w2d EGA. She began Oxytocin infusion that same evening and by the afternoon of 08/10/23 had no change in her cervical exam from 3cm/75/-1 station despite regular contractions at max concentration of Oxytocin at 20mu/min. Findings: VIable male infant in vertex presentation with clear amniotic fluid. Nl uterus, adnexa. Placenta intact with nl configuration with 3 vessel cord. Procedure Description: Patient was taken to the operating room she is placed in the sitting position and spinal anesthesia was administered without difficulty. She was then placed in the dorsal supine position with a leftward tilt. SCDs and a Rain catheter to gravity drainage were in place. A vaginal prep with Betadine was performed and the patient was prepped and draped in the usual sterile fashion.Surgical timeout was performed. Preop antibiotics were administered. After a adequate level of anesthesia was achieved a Pfannenstiel skin incision was made approximately 2 cm superior to the pubic symphysis using a scalpel and the underlying subcutaneous tissue dissected using curved Devries scissors to the level of the rectus fascia. The rectus fascia was then nicked in the midline and the fascial incision extended laterally using curved Devries scissors. 2 Yoshi clamps were applied to the superior rectus fascia and the rectus fascia was dissected off of the underlying rectus muscles using blunt technique. A similar technique was carried out on the inferior rectus fascia. Rectus muscles were then in the midline and the peritoneum entered bluntly. The peritoneal incision was extended laterally using blunt technique. The vesicle-uterine peritoneum over lower uterine segment was incised with curved Devries scissors and the bladder flap created bluntly. Scalpel was used to incise the lower uterine segment in a transverse fashion. The uterine incision was extended bluntly and the amniotic sac was ruptured with clear amniotic fluid noted. A single gloved hand was placed into the uterine cavity and the head was successfully delivered through the uterine incision followed by the trunk and extremities with the assistance of fundal pressure. The cord was doubly clamped and cut and the infant handed off to the waiting pediatric team. A segment of umbilical cord and a sample of cord blood were obtained. The placenta was extracted with a combination of fundal massage and gentle cord traction. The uterus was exteriorized cleared of all clots and debris and the uterine incision reapproximated with a running lock suture of 0 Vicryl followed by a second imbricating suture of 0 Vicryl. Uterine incision was noted be hemostatic. The uterus was returned to the abdomen and the paracolic gutters cleared of all clots and debris. Uterine incision and the along with the bladder flap and the abdominal wall were all inspected and noted to be hemostatic. The rectus fascia was reapproximated with a running suture of 0 Vicryl. space within the subcutaneous tissue closed with a running suture of 2-0 Vicryl. The skin incision was reapproximated with a subcuticular closure of 4-0 Vicryl. Steri strips and a Mepilex dressing was applied. The uterus was massaged for any remaining clots and debris. The patient was transported to recovery area in stable condition. All sponge, lap, and needle counts correct x2. [place] Gestational Age in Weeks/Days: 38 Weeks and 3 Days Infant Gender: Male (His parents intend to name him Hiram.) weight: 7 lb 1.229 oz
[2023-08-11] VITALS (12 sets, daily range): BP systolic 100–105; BP diastolic 60–64; PULSE 64–87; RESP 16–18; TEMP 36.6–36.9; O2SAT 94–100
[2023-08-11] MEDS: Ketorolac 30 MG/ML VIAL IVP (04:34)
[2023-08-11] MEDS: Normal Saline Flush 10 ML SYR IVP ×2 (04:34→08:39)
--- NOTE | 2023-08-11 07:46 | OBPPV_ITS ---
Date of service: 08/11/23 Time of Service: 07:46 Assessment and Plan Assessment and plan (1) Status post primary low transverse section: Status: Acute Assessment and plan: Patient is postoperative day #1 status post primary low-transverse section for labor arrest. She is doing well. Rain catheter will be removed today. CBC is pending. She will continue to ambulate, regular diet, oral pain medication. All questions answered Subjective Subjective Interval history: Patient seen and examined this morning. Overall doing well. Pain is well- controlled. Has passed gas. Will get up to shower this morning. Breast- feeding without difficulty. Significant decrease in her anxiety baby status: Doing well, Nursing well and Strong Bonding Observed Exam Physical Exam Vital signs: Temp Pulse Resp BP Pulse Ox 97.9 F 64 16 103/64 100 08/11/23 07:30 08/11/23 07:30 08/11/23 07:30 08/11/23 07:30 08/11/23 07:30 Vital Signs Reviewed: Yes Constitutional Constitutional: no acute distress HEENT Exam HEENT Exam: Normal Neck Exam Neck Exam: Normal Respiratory Exam Respiratory Exam: Normal Cardiovascular Exam Cardiovascular Exam: Normal Abdominal Exam Abdomen: Tender Comments: Incision dressed Fundal Exam Fundus: Below Umbilicus and Firm Extremities Exam Extremity Exam: Normal; negative Calf Tenderness, Edema or Redness Skin Exam Skin Exam: Normal Neurological Exam Neurological Exam: Normal Psychiatric Exam Psychiatric Exam: Normal Results Hemoglobin/Hematocrit: Hgb 10.4 g/dL (11.2-15.7) L 08/10/23 16:55 Hct 31.7 % (36.0-46.0) L 08/10/23 16:55 Abnormal Lab Findings: Abnormal Labs 08/09/23 08/10/23 15:40 16:55 WBC 14.47 H 17.63 H RBC 3.92 L 3.58 L Hgb 10.4 L Hct 34.2 L 31.7 L Absolute Neutrophils 14.99 H Absolute Monocytes 1.06 H
[2023-08-11] MEDS: Docusate Sodium 100 MG CAP PO (08:37)
[2023-08-11 08:56] LABS: Abs Immature Grans 0.44 10^3/uL (0.0-0.06); Absolute Basophil Count 0.08 10^3/uL (0.0-0.2); Absolute Lymphocyte Count 1.67 10^3/uL (1.2-3.4); Absolute Monocyte Count 1.54 10^3/uL (0.1-0.8); Basophils % 0.5; Eosinophils % 0.5; HCT 30.2 % (36.0-46.0); HGB 10.1 g/dL (11.2-15.7); Immature Grans % 2.6; MCH 29.5 pg (27.0-33.0); MCHC 33.4 % (32.0-36.0); MCV 88 fL (80-95); MPV 10.2 fL (8.0-11.0); Monocytes % 9.2; Neutrophils % 77.2; Platelet Count 208 10^3/uL (130-400); RBC 3.42 10^6/uL (3.93-5.22); RDW 13.9 % (11.7-14.6); RDW-SD 44.6 fL
[2023-08-11 09:05] LABS: Absolute Eosinophil Count 0.08 10^3/uL (0.0-0.7); Absolute Neutrophil Count 12.89 10^3/uL (1.2-6.7)
[2023-08-11 09:14] LABS: Diff Comment Diff Reviewed; RBC Morphology Normal
[2023-08-11] MEDS: Ibuprofen 600 MG TAB PO ×3 (11:12→23:04)
[2023-08-11] MEDS: Acetaminophen 325 MG TAB 650 MG PO ×3 (11:12→23:04)
[2023-08-11] MEDS: Citalopram 20 MG TAB 40 MG PO (21:22)
[2023-08-12] MEDS: Acetaminophen 325 MG TAB 650 MG PO (05:08)
[2023-08-12] MEDS: Ibuprofen 600 MG TAB PO (05:08)
--- NOTE | 2023-08-12 07:35 | W.PM.OBPNV1 ---
Date of service: 08/12/23 Time of Service: 07:35 Assessment and Plan Assessment and plan (1) Status post primary low transverse section: Status: Acute Assessment and plan: Postoperative day #2 status post primary low-transverse section for labor arrest and a long rupture of membranes. Doing well. No issues or concerns. Discharge home follow-up in the office in 1 and 6 weeks. All questions were answered. Exam Physical Exam Vital signs: Temp Pulse Resp BP Pulse Ox 98.2 F 70 17 105/64 97 08/11/23 23:40 08/11/23 23:40 08/11/23 23:40 08/11/23 23:40 08/11/23 23:40 Vital Signs Reviewed: Yes Constitutional Constitutional: no acute distress Comments: Patient seen and examined this morning. Doing well. Pain is well-controlled. Ambulating, tolerating a regular diet and oral pain medication with stable vital signs. HEENT Exam HEENT Exam: Normal Neck Exam Neck Exam: Normal Respiratory Exam Respiratory Exam: Normal Cardiovascular Exam Cardiovascular Exam: Normal Abdominal Exam Abdomen: Tender Comments: Incision dressed with Mepilex Fundal Exam Fundus: Below Umbilicus and Firm Extremities Exam Extremity Exam: Normal; negative Calf Tenderness or Edema Skin Exam Skin Exam: Normal Neurological Exam Neurological Exam: Normal Psychiatric Exam Psychiatric Exam: Normal Results Hemoglobin/Hematocrit: Hgb 10.1 g/dL (11.2-15.7) L 08/11/23 08:30 Hct 30.2 % (36.0-46.0) L 08/11/23 08:30 Abnormal Lab Findings: Abnormal Labs 08/09/23 08/10/23 08/11/23 15:40 16:55 08:30 WBC 14.47 H 17.63 H 16.70 H RBC 3.92 L 3.58 L 3.42 L Hgb 10.4 L 10.1 L Hct 34.2 L 31.7 L 30.2 L Absolute Neutrophils 14.99 H 12.89 H Absolute Monocytes 1.06 H 1.54 H
--- NOTE | 2023-08-12 07:36 | DSE_ITS ---
Date of service: 08/12/23 Time of Service: 07:37 DS: Diagnosis Discharge Diagnosis (1) Status post primary low transverse section: Status: Acute Asessment and Plan: Postoperative day #2 status post primary low-transverse section due to prolonged rupture and labor arrest. Doing well. Discharge home. Follow-up in the office in 1 and 6 weeks. All questions were answered. Discharge Plan Disposition Patient Disposition: Home Condition: Good Discharge Details Reason For Visit: SROM Admit Date/Time: 08/09/23 13:54 Admit Provider: Imelda Weber Attending Provider: Imelda Weber Primary Care Provider: Alaina Marie Hospital Course Hospital Course: Patient presented to the center with spontaneous rupture of membranes at 38 weeks. She had Pitocin augmentation of labor after misoprostol for cervical ripening. She failed to have active labor with any significant cervical change. She underwent a primary low-transverse section which was uncomplicated for delivery of a viable male named Hiram. She had an uncomplicated postoperative course and was discharged home postoperative day #2 ambulating, tolerating regular diet and oral pain medication with stable vital signs. All questions were answered. Home Meds and New Rx's Prescriptions: New ibuprofen 800 mg tablet 800 mg PO Q8H PRNQty: 30 1RF oxycodone-acetaminophen [Percocet] 5-325 mg tablet 1 tab PO Q8H PRNQty: 10 0RF No Action prenat.vits,holley,sxf-hjoe-jlmmz Tablet 1 tab PO DAILY docusate sodium 100 mg capsule 100 mg PO DAILY cholecalciferol (vitamin D3) 50 mcg (2,000 unit) capsule 50 mcg PO HS triamcinolone acetonide [Nasacort] 55 mcg aerosol,spray 1 spray intranasal HS PRN Rx Instructions: administer into each nostril famotidine 20 mg tablet 20 mg PO PRN loratadine [Claritin] 10 mg tablet 10 mg PO HS PRN citalopram 40 mg tablet 40 mg PO DAILY Qty: 60 1RF Discharge Instructions Additional Instructions: Follow-up with women's wellness in 1 week Stand Alone Forms: BC Instructions, BC Discharge Instruc Activity:: Pelvic rest, no heavy lif Equipment/Supplies:: No Equipment Needed Diet:: As Tolerated Discharge Orders Discharge Orders: Discharge Order (Routine); Ordered 08/12/23 Ordered By: Lucía Mosqueda OB:DS Summary Contraception Discussed Contraception Discussed: Yes, [place] Gender-Baby A: Male (His parents intend to name him Hiram.) weight: 7 lb 1.229 oz Status at Discharge Functional status at discharge: independent ambulation Overall status at discharge: patient is progressing back to baseline Mental Status: mental status grossly normal Speech and Movement: speech and movement normal Mood: congruent mood Affect: normal affect Exam Physical Exam Vital signs: Temp Pulse Resp BP Pulse Ox 98.2 F 70 17 105/64 97 08/11/23 23:40 08/11/23 23:40 08/11/23 23:40 08/11/23 23:40 08/11/23 23:40 PFSH All Active Problems (Updated 08/11/23 @ 07:47 by Lucía Mosqueda DO) Status post primary low transverse section (Acute) (Acute) Anxiety (Chronic) Celexa helps. Family and personal Hx anx/depression. Managed with good insight and strong support from . Vitamin D deficiency (Acute) Gilbert syndrome (Acute) Medical History (Updated 08/11/23 @ 07:47 by Lucía Mosqueda DO) Other specified counseling Family history of breast cancer mother Normal colonoscopy (~12/10/21) Female infertility Total bilirubin, elevated PONV (postoperative nausea and vomiting) Family history of colon cancer requiring screening colonoscopy MGP Dg age 45 Mother has A. polyp CE- 12/24 normal Repeat 2026 Colon cancer screening Eating disorder Family history of infertility History of hypotension Low, but stable, BP. Lightheaded in summer .. Monitors hydration, occasional inc salt intake. Pedialyte helps. Family history of colon cancer Maternal grandfather Dx @ 43yo, Stg 4! Mo with polyps in 30's. Recommending screening @ 30yo with 5-10 yr recall, [ ] TBD. 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 Hx LOC. Hx of tendinitis Knee, managed with self-care/home gym/exercise routine. PT PRN. Vaso-vagal reaction Hx vaso-vagal rxn (immuniz, IV needles) .. possible assoc with N/V/GI issues (?) History of snoring Long Hx, with enlarged turbinates, sinus congestion .. Hx ENT (-). No sign of apnea; good sleep. Seasonal allergies Long Hx, with enlrged turb and sinus congestion.. Antihistamines PRN. Intermittent vomiting Hx cyclical vomiting as a child; nausea/migraines as teen.. Possible episodic n/v 2' fatigue, stress, hormonal changes (?) Migraine with aura and without status migrainosus, not intractable Managed with Ibuprofen .. (6-8 hr episodes) Surgical History (Updated 08/11/23 @ 07:47 by Lucía Mosqueda DO) Status post dilation and curettage History of colonoscopy (~12/10/21) History of local excision of skin lesion Benign, [place] [place] H/O hernia repair (~02/1992) Family History (Updated 02/16/23 @ 10:10 by Gill Taylor CNM) Maternal Grandfather Substance use disorder opioids, dcsd Colon cancer Mother Anxiety Depression Hypertension Obesity Colon polyps age 30 Breast cancer Sister Anxiety Depression Brother Asthma Paternal Aunt Breast cancer Maternal Grandmother Breast cancer Paternal Grandmother Cancer hodgkin lymphoma Paternal Grandfather Prostate cancer Depression Father Depression Psoriasis Social History Smoking/Tobacco Use Status: Never Smoking risk assessment performed?: Yes Alcohol Intake: current Alcohol Intake frequency: a few times a month Alcohol type: beer Drug use: Never Substance use type: does not use Adopted: No Caregiver/Support person: No Foster care: No Household members: spouse Housing: house Number of Children: 0 number of grandchildren: 0 Communication Needs: None Education Level: other Details: MD Do you need help understanding health information?: Never 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 Pets and animals: Yes (2) Pets and animals: cat(s) Sexually active: Yes Do you think of yourself as: straight/heterosexual Current gender identity: female What is your relationship status?: How often do you talk on the phone with friends or family?: three or more times per week How often do you get together with friends or relatives?: twice per week Do you belong to any clubs or organized social groups?: no Panel score (0-1 are the most socially isolated patients): 2 What type of physical activity do you participate in: weight lifting, other De tails: skiing and running Duration: 30-45 minutes/day Frequency: 5-6 times per week Zulema/Hoahaoism: None Special zulema needs: No Seatbelt use: always Helmet use: Yes Helmet use: always Drive intox or ride w/intox road train driver: No Do you feel safe at home: Yes Do you feel safe in your relationship?: Yes Female Reproductive History Menstrual Age of Menarche: 12 Duration of menses: 6-7 days control method: none History History 2 Para 0 Hx # Term Pregnancies 0 Multiple births 0 Hx # Pregnancies 0 Ectopic pregnancies 0 AB induced 0 Hx Number of Living Children 0 AB spontaneous 1 DS: Data Vitals/I&O Vitals and I&O: Vital Signs Temperature 98.2 F 08/11/23 23:40 Temperature Source Oral 08/11/23 23:40 Pulse 70 08/11/23 23:40 Pulse Rhythm Regular 08/11/23 21:32 Respiratory Rate 17 08/11/23 23:40 Respiratory Depth Normal 08/11/23 21:32 Blood Pressure 105/64 08/11/23 23:40 Blood Pressure Mean 77 08/11/23 23:40 Pulse Oximetry 97 08/11/23 23:40 Oxygen Delivery Method Room Air 08/09/23 15:32 Oxygen Flow Rate 0 08/09/23 15:32 Pain Level 2 08/11/23 18:34 Comment pt just vomited 600ml 08/10/23 01:27 Intake & Output 08/11/23 08/11/23 08/12/23 11:59 23:59 11:59 Intake Total 1300 / 1300 Output Total 1350 / 3850 2500 / 3850 Balance -50 / -2550 -2500 / -2550 Intake: IV 1300 / 1300 Output: Urine 1350 / 3850 2500 / 3850 Other: Urine Color Yellow Yellow Urine Appearance Clear Clear Data Completed and Pending Labs on day of discharge: Labs from last 24 hours 08/11/23 08:30 WBC 16.70 H RBC 3.42 L Hgb 10.1 L Hct 30.2 L MCV 88 MCH 29.5 MCHC 33.4 RDW 13.9 Plt Count 208 MPV 10.2 Immature Gran % 2.6 Neutrophils % 77.2 Lymphocytes % 10.0 Monocytes % 9.2 Eosinophils % 0.5 Basophils % 0.5 Nucleated RBC % 0.0 Absolute Neutrophils 12.89 H Absolute Lymphocytes 1.67 Absolute Monocytes 1.54 H Absolute Eosinophils 0.08 Absolute Basophils 0.08 RBC Morphology Normal
--- NOTE | 2023-08-12 07:38 | DSE_ITS ---
Date of service: 08/12/23 Time of Service: 07:38 DS: Diagnosis Discharge Diagnosis (1) Status post primary low transverse section: Status: Acute Asessment and Plan: Postop day 2 status post primary low-transverse section for prolonged rupture and labor arrest. Delivered viable male infant. Uncomplicated intraoperative and postoperative care. Follow-up in the office in 1 and 6 w eeks. Discharge Plan Disposition Patient Disposition: Home Condition: Good Discharge Details Reason For Visit: SROM Admit Date/Time: 08/09/23 13:54 Admit Provider: Imelda Weber Attending Provider: Imelda Weber Primary Care Provider: Alaina Marie Hospital Course Hospital Course: Patient presented to the center with spontaneous rupture of membranes at 38 weeks. She had Pitocin augmentation of labor after misoprostol for cervical ripening. She failed to have active labor with any significant cervical change. She underwent a primary low-transverse section which was uncomplicated for delivery of a viable male named Hiram. She had an uncomplicated postoperative course and was discharged home postoperative day #2 ambulating, tolerating regular diet and oral pain medication with stable vital signs. All q uestions were answered. Home Meds and New Rx's Prescriptions: New ibuprofen 800 mg tablet 800 mg PO Q8H PRNQty: 30 1RF oxycodone-acetaminophen [Percocet] 5-325 mg tablet 1 tab PO Q8H PRNQty: 10 0RF No Action prenat.vits,holley,bgi-ywti-bcano Tablet 1 tab PO DAILY docusate sodium 100 mg capsule 100 mg PO DAILY cholecalciferol (vitamin D3) 50 mcg (2,000 unit) capsule 50 mcg PO HS triamcinolone acetonide [Nasacort] 55 mcg aerosol,spray 1 spray intranasal HS PRN Rx Instructions: administer into each nostril famotidine 20 mg tablet 20 mg PO PRN loratadine [Claritin] 10 mg tablet 10 mg PO HS PRN citalopram 40 mg tablet 40 mg PO DAILY Qty: 60 1RF Discharge Instructions Additional Instructions: Follow-up with women's wellness in 1 week Stand Alone Forms: BC Instructions, BC Discharge Instruc Activity:: Pelvic rest, no heavy lif Equipment/Supplies:: No Equipment Needed Diet:: As Tolerated Discharge Orders Discharge Orders: Discharge Order (Routine); Ordered 08/12/23 Ordered By: Lucía Mosqueda OB:DS Summary Contraception Discussed Contraception Discussed: Yes, [place] Infant Gender-Baby A: Male (His parents intend to name him Hiram.) weight: 7 lb 1.229 oz Status at Discharge Functional status at discharge: independent ambulation Overall status at discharge: patient is progressing back to baseline Mental Status: mental status grossly normal Speech and Movement: speech and movement normal Mood: congruent mood Affect: normal affect Exam Physical Exam Vital signs: Temp Pulse Resp BP Pulse Ox 98.2 F 70 17 105/64 97 08/11/23 23:40 08/11/23 23:40 08/11/23 23:40 08/11/23 23:40 08/11/23 23:40 Vital Signs Reviewed: Yes Constitutional Comments: See physical exam from progress note dated 08/12/2023 PFSH All Active Problems (Updated 08/11/23 @ 07:47 by Lucía Mosqueda DO) Status post primary low transverse section (Acute) (Acute) Anxiety (Chronic) Celexa helps. Family and personal Hx anx/depression. Managed with good insight and strong support from . Vitamin D deficiency (Acute) Gilbert syndrome (Acute) Medical History (Updated 08/11/23 @ 07:47 by Lucía Mosqueda DO) Other specified counseling Family history of breast cancer mother Normal colonoscopy (~12/10/21) Female infertility Total bilirubin, elevated PONV (postoperative nausea and vomiting) Family history of colon cancer requiring screening colonoscopy MGP Dg age 45 Mother has A. polyp CE- 12/24 normal Repeat 2026 Colon cancer screening Eating disorder Family history of infertility History of hypotension Low, but stable, BP. Lightheaded in summer .. Monitors hydration, occasional inc salt intake. Pedialyte helps. Family history of colon cancer Maternal grandfather Dx @ 43yo, Stg 4! Mo with polyps in 30's. Recommending screening @ 30yo with 5-10 yr recall, [ ] TBD. 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 Hx LOC. Hx of tendinitis Knee, managed with self-care/home gym/exercise routine. PT PRN. Vaso-vagal reaction Hx vaso-vagal rxn (immuniz, IV needles) .. possible assoc with N/V/GI issues (?) History of snoring Long Hx, with enlarged turbinates, sinus congestion .. Hx ENT (-). No sign of apnea; good sleep. Seasonal allergies Long Hx, with enlrged turb and sinus congestion.. Antihistamines PRN. Intermittent vomiting Hx cyclical vomiting as a child; nausea/migraines as teen.. Possible episodic n/v 2' fatigue, stress, hormonal changes (?) Migraine with aura and without status migrainosus, not intractable Managed with Ibuprofen .. (6-8 hr episodes) Surgical History (Updated 08/11/23 @ 07:47 by Lucía Mosqueda DO) Status post dilation and curettage History of colonoscopy (~12/10/21) History of local excision of skin lesion Benign, follows with Derm ([facility] [place] H/O hernia repair (~02/1992) Family History (Updated 02/16/23 @ 10:10 by Gill Taylor CNM) Maternal Grandfather Substance use disorder opioids, dcsd Colon cancer Mother Anxiety Depression Hypertension Obesity Colon polyps age 30 Breast cancer Sister Anxiety Depression Brother Asthma Paternal Aunt Breast cancer Maternal Grandmother Breast cancer Paternal Grandmother Cancer hodgkin lymphoma Paternal Grandfather Prostate cancer Depression Father Depression Psoriasis Social History Smoking/Tobacco Use Status: Never Smoking risk assessment performed?: Yes Alcohol Intake: current Alcohol Intake frequency: a few times a month Alcohol type: beer Drug use: Never Substance use type: does not use Adopted: No Caregiver/Support person: No Foster care: No Household members: spouse Housing: house Number of Children: 0 number of grandchildren: 0 Communication Needs: None Education Level: other Details: MD Do you need help understanding health information?: Never 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 Pets and animals: Yes (2) Pets and animals: cat(s) Sexually active: Yes Do you think of yourself as: straight/heterosexual Current gender identity: female What is your relationship status?: How often do you talk on the phone with friends or family?: three or more times per week How often do you get together with friends or relatives?: twice per week Do you belong to any clubs or organized social groups?: no Panel score (0-1 are the most socially isolated patients): 2 What type of physical activity do you participate in: weight lifting, other Details: skiing and running Duration: 30-45 minutes/day Frequency: 5-6 times per week Zulema/Jainism: None Special zulema needs: No Seatbelt use: always Helmet use: Yes Helmet use: always Drive intox or ride w/intox shuttle truck driver: No Do you feel safe at home: Yes Do you feel safe in your relationship?: Yes Female Reproductive History Menstrual Age of Menarche: 12 Duration of menses: 6-7 days control method: none History History 2 Para 0 Hx # Term Pregnancies 0 Multiple births 0 Hx # Pregnancies 0 Ectopic pregnancies 0 AB induced 0 Hx Number of Living Children 0 AB spontaneous 1 DS: Data Vitals/I&O Vitals and I&O: Vital Signs Temperature 98.2 F 08/11/23 23:40 Temperature Source Oral 08/11/23 23:40 Pulse 70 08/11/23 23:40 Pulse Rhythm Regular 08/11/23 21:32 Respiratory Rate 17 08/11/23 23:40 Respiratory Depth Normal 08/11/23 21:32 Blood Pressure 105/64 08/11/23 23:40 Blood Pressure Mean 77 08/11/23 23:40 Pulse Oximetry 97 08/11/23 23:40 Oxygen Delivery Method Room Air 08/09/23 15:32 Oxygen Flow Rate 0 08/09/23 15:32 Pain Level 2 08/11/23 18:34 Comment pt just vomited 600ml 08/10/23 01:27 Intake & Output 08/11/23 08/11/23 08/12/23 11:59 23:59 11:59 Intake Total 1300 / 1300 Output Total 1350 / 3850 2500 / 3850 Balance -50 / -2550 -2500 / -2550 Intake: IV 1300 / 1300 Output: Urine 1350 / 3850 2500 / 3850 Other: Urine Color Yellow Yellow Urine Appearance Clear Clear Data Completed and Pending Labs on day of discharge: Labs from last 24 hours 08/11/23 08:30 WBC 16.70 H RBC 3.42 L Hgb 10.1 L Hct 30.2 L MCV 88 MCH 29.5 MCHC 33.4 RDW 13.9 Plt Count 208 MPV 10.2 Immature Gran % 2.6 Neutrophils % 77.2 Lymphocytes % 10.0 Monocytes % 9.2 Eosinophils % 0.5 Basophils % 0.5 Nucleated RBC % 0.0 Absolute Neutrophils 12.89 H Absolute Lymphocytes 1.67 Absolute Monocytes 1.54 H Absolute Eosinophils 0.08 Absolute Basophils 0.08 RBC Morphology Normal
[2023-08-12 08:45] VITALS: BP 108/67; PULSE 87; RESP 15; TEMP 36.6; O2SAT 100
== END 2023-08-12 10:15 | disposition home or self-care (01) | DRG 787 ==
PROVIDERS: Obstetrics & Gynecology; Obstetrics & Gynecology Gynecology; Admitting Provider Obstetrics & Gynecology; PCP Student in an Organized Health Care Education/Training Program; Visit Provider Obstetrics & Gynecology
PROC: 10D00Z1 Extraction of Products of Conception, Low, Open Approach (ICD-10-PCS; CPT 59514; principal; 2023-08-10 15:00)
DX: O42.92 Full-term premature rupture of membranes, unspecified as to length of time between rupture and onset of labor (principal); O99.354 Diseases of the nervous system complicating childbirth; Z37.0 Single live birth; Z3A.38 38 weeks gestation of pregnancy; E80.4 Gilbert syndrome; E55.9 Vitamin D deficiency, unspecified; F41.9 Anxiety disorder, unspecified; G43.109 Migraine with aura, not intractable, without status migrainosus; O99.284 Endocrine, nutritional and metabolic diseases complicating childbirth; O99.344 Other mental disorders complicating childbirth; O62.1 Secondary uterine inertia; O61.0 Failed medical induction of labor
CPT/HCPCS: 59514; 36415; 85027; 86850; 86900; 86901; 85025; J0456; J0690; J1100; J1885; J2371; J2405; J3010

== ENCOUNTER 2023-12-21 08:50 | Outpatient (REF) | payer OTHER, SELFPAY ==
--- NOTE | 2023-12-21 08:15 | PAPFT_PTH ---
PATIENT: Sana Chamberlain LOC: [facility] U#:[id number] AGE/SX: 33/F ROOM: RE12/21/[address]: Lucía Mosqueda DO : 1990 BED: DIS: 12/21/2023 SPEC #: [id number] RECD: 12/21/23 13:05 STATUS: AARON REQ #: [id number] HUGH: 12/21/23 08:[address]: Lucía Mosqueda DEPT: [facility] Cytology RECD BY: Torri Portillo ENTERED: 12/21/23 13:06 SP TYPE: PAPFT OTHR DR: Alaina Marie DO Tissues: 1 - CX/ENDOCX FOR PAP SMEARS Procedures: PAP THIN PREP/[facility] Screening HPV DNA PROBE Comments: [id number]
== END 2023-12-21 08:51 | disposition home or self-care (01) ==
LOC: LBN 08:50
PROVIDERS: PCP Student in an Organized Health Care Education/Training Program; Visit Provider Obstetrics & Gynecology
DX: Z12.4 Encounter for screening for malignant neoplasm of cervix (principal); Z11.51 Encounter for screening for human papillomavirus (HPV)
CPT/HCPCS: 88142; 87624